=== PATIENT | female | born 1990 | race Caucasian/White ===

== ENCOUNTER 2017-01-03 13:47 | Emergency (ER) | payer BC ==
--- NOTE | 2017-01-03 14:17 | EDM.PDOC ---
ED HPI GENERAL MEDICAL PROBLEM - General Chief Complaint: Flank Pain Stated Complaint: ABD PAIN Time Seen by Provider: 01/03/17 14:15 Source of Information: Reports: Patient History Limitations: Reports: No Limitations - History of Present Illness INITIAL COMMENTS - FREE TEXT/NARRATIVE: HISTORY AND PHYSICAL: []26-year-old female presents with right-sided flank pain History of Present Illness: []This patient had pain starting this morning about 5:00 to his 14 hours ago. Pain comes in waves. Patient states she is 17 weeks 4 days . Review of Systems: As per history of present illness and below otherwise all systems reviewed and negative. Past medical history: As per history of present illness and as reviewed below otherwise noncontributory. Surgical history: As per history of present illness and as reviewed below otherwise noncontributory. Social history: No reported history of drug or alcohol abuse. Family history: As per history of present illness and as reviewed below otherwise noncontributory. Physical exam: Alert and oriented female looking quite uncomfortable. Answers questions in full sentences, without shortness of breath. HEENT: Atraumatic, normocehpalic, pupils reactive, negative for conjunctival pallor or scleral icterus, mucous membranes moist, throat clear, neck supple, nontender, trachea midline. Lungs: Clear to auscultation, breath sounds equal bilaterally, chest non tender. Heart: S1S2, regular, negative for clicks, rubs, or JVD. Abdomen: Soft, nondistended, nontender. Negative for masses or hepatossplenmegaly. Negative for costovertebral tenderness. Pelvis: Stable nontender. Genitourinary: Deferred. Rectal: Deferred Extremities: Atraumatic, negative for cords or calf pain. Neurovascular unremarkable. Neuro: Awake, alert, oriented. Cranial nerves II through XII unremarkable. Cerebellum unremarkable. Motor and sensory unremarkable throughout. Exam nonfocal. Discussed case with Dr. Lowe and with Dr. Abreu. They're in agreement to the pain patient is having have her follow-up with Dr. Will. Diagnostics: [UA] Therapeutics: [lortab] Impression: [flank pain- right hydronephrosis] Plan: []Lortab q 6hours prn pain #12 NR Follow-up with Dr. Will Definitive disposition and diagnosis as appropriate pending reevaluation and review of above. 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 ED EXAM, RENAL/ - Physical Exam Exam: See Below Course - Vital Signs Last Recorded V/S: Last Vital Signs Temp 36.3 C 01/03/17 13:54 Pulse 107 H 01/03/17 13:54 Resp 18 01/03/17 13:54 BP 128/83 01/03/17 13:54 Pulse Ox 99 01/03/17 13:54 - Orders/Labs/Meds Orders: Active Orders 24 hr Category Date Time Status CULTURE URINE [RM] Stat Lab 01/03/17 14:05 Received Labs: Laboratory Tests 01/03/17 Range/Units 14:05 Urine Color YELLOW Urine Appearance CLEAR Urine pH 7.0 (5.0-8.0) Ur Specific [place] 1.010 (1.001-1.035) Urine Protein NEGATIVE (NEGATIVE) mg/dL Urine Glucose (UA) NEGATIVE (NEGATIVE) mg/dL Urine Ketones NEGATIVE (NEGATIVE) mg/dL Urine Occult Blood NEGATIVE (NEGATIVE) Urine Nitrite NEGATIVE (NEGATIVE) Urine Bilirubin NEGATIVE (NEGATIVE) Urine Urobilinogen 0.2 (<2.0) EU/dL Ur Leukocyte Esterase NEGATIVE (NEGATIVE) Urine RBC NONE SEEN (0-2/HPF) Urine WBC 0-2 (0-5/HPF) Ur Epithelial Cells OCCASIONAL (NONE-FEW) Urine Bacteria FEW (NEGATIVE) Urine Mucus LIGHT (NONE-MOD) Departure - Departure Time of Disposition: 16:05 Disposition: Home, Self-Care 01 Condition: Good Clinical Impression: Hydronephrosis of right kidney - Discharge Information Referrals: PCP,None [Primary Care Provider] - Forms: ED Department Discharge Additional Instructions: The following information is given to patients seen in the emergency department who are being discharged to home. This information is to outline your options for follow-up care. We provide all patients seen in our emergency department with a follow-up referral. The need for follow-up, as well as the timing and circumstances, are variable depending upon the specifics of your emergency department visit. If you don't have a primary care physician on staff, we will provide you with a referral. We always advise you to contact your personal physician following an emergency department visit to inform them of the circumstance of the visit and for follow-up with them and/or the need for any referrals to a consulting specialist. The emergency department will also refer you to a specialist when appropriate. This referral assures that you have the opportunity for followup care with a specialist. All of these measure are taken in an effort to provide you with optimal care, which includes your followup. Under all circumstances we always encourage you to contact your private physician who remains a resource for coordinating your care. When calling for followup care, please make the office aware that this follow-up is from your recent emergency room visit. If for any reason you are refused follow-up, please contact the [facility] emergency department at and asked to speak to the emergency department charge nurse. All of with your primary care provider Dr. Will Have discussed your case with Dr. Abreu and Dr. Lowe We will treat her pain any worsening of symptoms please return to ER for evaluation - My Orders Last 24 Hours: My Active Orders 01/03/17 14:05 CULTURE URINE [RM] Stat - Assessment/Plan Last 24 Hours: My Active Orders 01/03/17 14:05 CULTURE URINE [RM] Stat
--- NOTE | 2017-01-03 15:22 | US ---
EXAMINATION: Renal ultrasound HISTORY: Right flank pain, 17 weeks COMPARISON: None TECHNIQUE: Grayscale and color Doppler images obtained of the kidneys and bladder. FINDINGS: The right kidney measures 11.2 cm and the left kidney measures 10.2 cm [id number]. There is mild to moderate right pyelocaliectasis. No hydronephrosis noted on the left. Renal cortical echot exture is normal bilaterally. Normal color Doppler flow. No masses or perinephric fluid collections. The urinary bladder is minimally filled. IMPRESSION: 1. Mild to moderate right hydronephrosis.
[2017-01-03] MEDS ORDERED: Acetaminophen/HYDROcodone 325-5 MG Tab PO ONE (16:08)
[2017-01-03 19:14] VITALS: BP 102/75
== END 2017-01-03 16:25 | disposition home or self-care (01) ==
LOC: MW.ED 13:47
DX: O26.832 Pregnancy related renal disease, second trimester (principal); N13.30 Unspecified hydronephrosis; O99.332 Smoking (tobacco) complicating pregnancy, second trimester; F17.210 Nicotine dependence, cigarettes, uncomplicated; Z3A.17 17 weeks gestation of pregnancy
CPT/HCPCS: 76775; 76775-26; 81001; 87086; 99282; 99284-25

== ENCOUNTER 2017-01-04 01:38 | Emergency (ER) | payer BC ==
[2017-01-04] MEDS ORDERED: Ondansetron 4 MG/2 ML SDV IVPUSH ONE ×2 (01:43→03:39)
[2017-01-04] MEDS ORDERED: Sodium Chloride 0.9% 1,000 ML IV ONE (01:43)
--- NOTE | 2017-01-04 01:44 | EDM.PDOC ---
ED HPI GENERAL MEDICAL PROBLEM - General Chief Complaint: Abdominal Pain Stated Complaint: THROWING UP Time Seen by Provider: 01/04/17 01:44 Source of Information: Reports: Patient - History of Present Illness INITIAL COMMENTS - FREE TEXT/NARRATIVE: HISTORY AND PHYSICAL: History of present illness: []26-year-old female 17 weeks with IUP presents with nausea and vomiting after taking pain medication, she is taking pain medicine in the past with similar reaction/intolerance. She was seen earlier in the day with right flank pain and provided [place] 5 per 325 she took a half tab and begin vomiting she has been vomiting since, pain has resolved all fever chills sweats no chest pain shortness breath headache dizziness palpitation no bowel or urine symptoms abdominal pain resolved No low back pain vaginal bleeding spotting discharge or fluid leakage Review of systems: As per history of present illness and below otherwise all systems reviewed and negative. Past medical history: As per history of present illness and as reviewed below otherwise noncontributory. Surgical history: As per history of present illness and as reviewed below otherwise noncontributory. Social history: No reported history of drug or alcohol abuse. Family history: As per history of present illness and as reviewed below otherwise noncontributory. Physical exam: HEENT: Atraumatic, normocephalic, pupils reactive, negative for conjunctival pallor or scleral icterus, mucous membranes moist, throat clear, neck supple, nontender, trachea midline. Lungs: Clear to auscultation, breath sounds equal bilaterally, chest nontender. Heart: S1S2, regular, negative for clicks, rubs, or JVD. Abdomen: Soft, nondistended, nontender. Negative for masses or hepatosplenomegaly. Negative for costovertebral tenderness. Uterus consistent with dates Pelvis: Stable nontender. Genitourinary: Deferred. Rectal: Deferred. Extremities: Atraumatic, negative for cords or calf pain. Neurovascular unremarkable. Neuro: Awake, alert, oriented. Cranial nerves II through XII unremarkable. Cerebellum unremarkable. Motor and sensory unremarkable throughout. Exam nonfocal. Diagnostics: []CBC, CMP, amylase and lipase UA, hCG Therapeutics: []1 L normal saline bolus Zofran 8 mg IV Ultrasound on file within last 24 hours Impression: []Vomiting resolved 17 weeks IUP by ultrasound with Dr. will ABO type B- on file heart tones 150s Definitive disposition and diagnosis as appropriate pending reevaluation and review of above. 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 ED EXAM, GENERAL - Physical Exam Exam: See Below Course - Vital Signs Last Recorded V/S: Last Vital Signs Temp 36.4 C 01/04/17 01:45 Pulse 84 01/04/17 01:45 Resp 18 01/04/17 01:45 BP 121/84 01/04/17 01:45 Pulse Ox 99 01/04/17 01:45 - Orders/Labs/Meds Orders: Active Orders 24 hr Category Date Time Status Heart Tones [RC] ASDIRECTED Care 01/04/17 02:03 Active Labs: Laboratory Tests 01/04/17 01/04/17 Range/Units 01:55 01:55 WBC 12.98 H (4.0-11.0) K/uL RBC 4.18 L (4.30-5.90) M/uL Hgb 13.4 (12.0-16.0) g/dL Hct 37.8 (36.0-46.0) % MCV 90.4 (80.0-98.0) fL MCH 32.1 H (27.0-32.0) pg MCHC 35.4 (31.0-37.0) g/dL RDW Std Deviation 41.4 (28.0-62.0) fl RDW Coeff of Orin 13 (11.0-15.0) % Plt Count 240 (150-400) K/uL MPV 9.60 (7.40-12.00) fL Neut % (Auto) 81.0 H (48.0-80.0) % Lymph % (Auto) 12.2 L (16.0-40.0) % [place] % (Auto) 6.2 (0.0-15.0) % Eos % (Auto) 0.4 (0.0-7.0) % Baso % (Auto) 0.2 (0.0-1.5) % Neut # (Auto) 10.5 H (1.4-5.7) K/uL Lymph # (Auto) 1.6 (0.6-2.4) K/uL [place] # (Auto) 0.8 (0.0-0.8) K/uL Eos # (Auto) 0.1 (0.0-0.7) K/uL Baso # (Auto) 0.0 (0.0-0.1) K/uL Nucleated RBC % 0.0 /100WBC Nucleated RBCs # 0 K/uL Sodium 133 L (136-146) mmol/L Potassium 3.7 (3.5-5.1) mmol/L Chloride 104 (98-110) mmol/L Carbon Dioxide 19 L (21-31) mmol/L BUN 7 (6.0-23.0) mg/dL Creatinine 0.7 (0.6-1.5) mg/dL Est Cr Clr Drug Dosing 105.93 mL/min Estimated GFR (MDRD) > 60.0 ml/min Glucose 94 (60-110) mg/dL Calcium 9.6 (8.8-10.8) mg/dL Total Bilirubin 0.6 (0.1-1.5) mg/dL AST 26 (5-40) IU/L ALT 31 (8-54) IU/L Alkaline Phosphatase 48 (40-150) Total Protein 7.4 (6.0-8.0) g/dL Albumin 4.0 (3.5-5.0) g/dL Globulin 3.4 (2.0-3.5) g/dL Albumin/Globulin Ratio 1.2 L (1.3-2.8) Amylase 46 (10-90) U/L Lipase 19 (7-80) U/L Meds: Medications Discontinued Medications Generic Name Dose Route Start Last Admin Trade Name Leonardo PRN Reason Stop Dose Admin Sodium Chloride 1,000 mls @ 999 mls/hr 01/04/17 01:43 01/04/17 01:57 Normal Saline IV 01/04/17 02:43 999 mls/hr STAT ONE Administration Ondansetron HCl 8 mg 01/04/17 01:43 01/04/17 01:59 Zofran IVPUSH 01/04/17 01:44 8 mg ONETIME ONE Administration Departure - Departure Time of Disposition: 02:51 Disposition: Home, Self-Care 01 Condition: Good Clinical Impression: Vomiting - Discharge Information Referrals: Anastasiya Will MD [Primary Care Provider] - Forms: ED Department Discharge Additional Instructions: Medication as prescribed Return if symptoms persist or worsen Follow-up with OB as scheduled The following information is given to patients seen in the emergency department who are being discharged to home. This information is to outline your options for follow-up care. We provide all patients seen in our emergency department with a follow-up referral. The need for follow-up, as well as the timing and circumstances, are variable depending upon the specifics of your emergency department visit. If you don't have a primary care physician on staff, we will provide you with a referral. We always advise you to contact your personal physician following an emergency department visit to inform them of the circumstance of the visit and for follow-up with them and/or the need for any referrals to a consulting specialist. The emergency department will also refer you to a specialist when appropriate. This referral assures that you have the opportunity for follow-up care with a specialist. All of these measure are taken in an effort to provide you with optimal care, which includes your follow-up. Under all circumstances we always encourage you to contact your private physician who remains a resource for coordinating your care. When calling for follow-up care, please make the office aware that this follow-up is from your recent emergency room visit. If for any reason you are refused follow-up, please contact the [facility] emergency department at and asked to speak to the emergency department charge nurse. - My Orders Last 24 Hours: My Active Orders 01/04/17 02:03 Heart Tones [RC] ASDIRECTED - Assessment/Plan Last 24 Hours: My Active Orders 01/04/17 02:03 Heart Tones [RC] ASDIRECTED
[2017-01-04 02:31] LABS: CHLORIDE,CL 104 mmol/L (98-110); SODIUM,NA 133 mmol/L (136-146)
[2017-01-04] MEDS ORDERED: LORazepam 2 MG/ML MDV IVPUSH ONE (02:56)
[2017-01-04 04:06] VITALS: BP 91/57
== END 2017-01-04 04:09 | disposition home or self-care (01) ==
LOC: MW.ED 01:38
DX: O21.9 Vomiting of pregnancy, unspecified (principal); O99.332 Smoking (tobacco) complicating pregnancy, second trimester; F17.210 Nicotine dependence, cigarettes, uncomplicated; Z3A.17 17 weeks gestation of pregnancy
CPT/HCPCS: 80053; 82150; 83690; 85025; 96361; 96374; 96375; 96376; 99284; J2060; J2405; J7040; 99283

== ENCOUNTER 2017-01-04 16:50 | Observation (INO) | payer BC ==
[2017-01-04] MEDS ORDERED: Lactated Ringers 1,000 ML IV ONE (17:42)
[2017-01-04] MEDS: Dextrose 5%-0.45% NaCl 1,000 ML IV SCH (18:58)
[2017-01-04] MEDS: Ondansetron 4 MG/2 ML SDV IVPUSH PRN (19:03)
[2017-01-04] MEDS: Acetaminophen/oxyCODONE 325-5 MG Tab PO PRN (19:04)
[2017-01-05] MEDS: Ondansetron 4 MG/2 ML SDV IVPUSH PRN ×3 (00:40→11:27)
[2017-01-05] MEDS: Acetaminophen/oxyCODONE 325-5 MG Tab PO PRN ×2 (00:40→07:02)
[2017-01-05] MEDS: Dextrose 5%-0.45% NaCl 1,000 ML IV SCH ×2 (03:02→11:21)
[2017-01-05] MEDS ORDERED: HYDROmorphone 2 MG/ML Syringe IVPUSH ONE ×2 (08:08→14:04)
--- NOTE | 2017-01-05 08:10 | PCM.PN ---
- General Info Date of Service: 01/05/17 Subjective Update: 17.5 weeks gestation admitted overnight for observation, pain control due to right flank pain, history suggestive of a renal stone. Patient still in pain- percocet dulls the pain (she a dose last night and this morning), movement makes it worst. Pain locate right flank radiating to groin. Straining urine- nichelle debris in urine but no definitive stone passed yet. Has nausea but no vomiting. Tolerated some amount of toast this am. Denies fever or chills. Feels flutters. Denies uterine cramps and no vaginal bleeding Functional Status: Reports: Urinating, Other - Review of Systems General: Denies: Fever, Chills HEENT: Denies: Headaches Pulmonary: Denies: Shortness of Breath, Pleuritic Chest Pain Cardiovascular: Denies: Chest Pain, Palpitations Gastrointestinal: Denies: Abdominal Pain Genitourinary: Reports: Flank Pain. Denies: Dysuria, Frequency, Burning, Urgency, Hematuria Neurological: Denies: Headache - Patient Data Weight - Most Recent: 143 lb I&O - Last 24 Hours: Intake & Output 01/04/17 01/05/17 01/05/17 22:59 06:59 14:59 Intake Total 1000 Output Total 575 Balance -575 1000 Lab Results Last 24 Hours: Laboratory Results - last 24 hr 01/05/17 Range/Units 04:56 WBC 8.48 (4.0-11.0) K/uL RBC 3.53 L (4.30-5.90) M/uL Hgb 10.8 L (12.0-16.0) g/dL Hct 32.3 L (36.0-46.0) % MCV 91.5 (80.0-98.0) fL MCH 30.6 (27.0-32.0) pg MCHC 33.4 (31.0-37.0) g/dL RDW Std Deviation 42.5 (28.0-62.0) fl RDW Coeff of Orin 13 (11.0-15.0) % Plt Count 204 (150-400) K/uL MPV 9.60 (7.40-12.00) fL Neut % (Auto) 66.4 (48.0-80.0) % Lymph % (Auto) 22.5 (16.0-40.0) % [place] % (Auto) 10.1 (0.0-15.0) % Eos % (Auto) 0.9 (0.0-7.0) % Baso % (Auto) 0.1 (0.0-1.5) % Neut # (Auto) 5.6 (1.4-5.7) K/uL Lymph # (Auto) 1.9 (0.6-2.4) K/uL [place] # (Auto) 0.9 H (0.0-0.8) K/uL Eos # (Auto) 0.1 (0.0-0.7) K/uL Baso # (Auto) 0.0 (0.0-0.1) K/uL Nucleated RBC % 0.0 /100WBC Nucleated RBCs # 0 K/uL Med Orders - Current: Current Medications Dextrose/Sodium Chloride (Dextrose 5%-1/2 Ns) 1,000 mls @ 125 mls/hr IV ASDIRECTED WANDA Last Admin: 01/05/17 03:02 Dose: 125 mls/hr Ondansetron HCl (Zofran) 4 mg IVPUSH Q4H PRN PRN Reason: Nausea Last Admin: 01/05/17 07:00 Dose: 4 mg Oxycodone/Acetaminophen (Percocet 325-5 Mg) 1 tab PO Q4H PRN PRN Reason: Pain Last Admin: 01/05/17 07:02 Dose: 1 tab Discontinued Medications Lactated Ringer's (Ringers, Lactated) 1,000 mls @ 999 mls/hr IV .BOLUS ONE Stop: 01/04/17 18:42 Last Admin: 01/04/17 17:58 Dose: 999 mls/hr Comments:: Patient lying on her left side. Looks visibly in pain - Exam General: Alert, Oriented Lungs: Clear to Auscultation, Normal Respiratory Effort Cardiovascular: Regular Rate, Regular Rhythm GI/Abdominal Exam: Soft, Non-Tender Back Exam: CVA Tenderness (R) Extremities: No Pedal Edema Psy/Mental Status: Alert, Normal Affect, Normal Mood - Problem List & Annotations (1) Right flank pain SNOMED Code(s): 518519755 Code(s): R10.9 - UNSPECIFIED ABDOMINAL PAIN Status: Acute Current Visit: Yes (2) Hydronephrosis of right kidney SNOMED Code(s): 95748200 Code(s): N13.30 - UNSPECIFIED HYDRONEPHROSIS Status: Acute Current Visit : No - Problem List Review Problem List Initiated/Reviewed/Updated: Yes - Assessment Assessment:: Primp 17.5 weeks with right flank pain- symptoms and signs consistent with renal stone. Nichelle debris in urine, no definitive stone seen. Afebrile Nausea with minimal vomiting this am WBC: Normal FHR: 145 - Plan Plan:: Continue to strain urine Continue IV fluids, encourage to initiate small amount of bland food- crackers. May try broths too as tolerated Will start daily Flomax 0.4mg Continue to observe- if no improvement in symptoms will call for urology consult
[2017-01-05] MEDS: Tamsulosin 0.4 MG Cap.ER PO SCH (08:28)
[2017-01-05] MEDS ORDERED: Promethazine 25 MG/ML SDV IM PRN (14:19)
[2017-01-05] MEDS ORDERED: Lactated Ringers 1,000 ML IV SCH (20:10)
[2017-01-06] MEDS ORDERED: Dextrose 5%-0.45% NaCl 1,000 ML IV SCH (04:00)
[2017-01-06] MEDS: Tamsulosin 0.4 MG Cap.ER PO SCH (08:59)
--- NOTE | 2017-01-06 11:50 | PCM.PN ---
- General Info Date of Service: 01/06/17 Subjective Update: 17.5 weeks gestation, 2nd day hospital stay for right flank pain associated with nausea and vomiting. Patient is feeling much better today. Her pain has reduced considerably, she hasn't required any pain meds or antiemetics over night. She tolerated a BF of pancakes. Denies fever/chills. Reports positive movements Functional Status: Reports: Pain Controlled, Tolerating Diet, Ambulating, Urinating - Review of Systems General: Denies: Fever, Fatigue, Malaise, Chills Pulmonary: Denies: Shortness of Breath, Pleuritic Chest Pain Cardiovascular: Denies: Chest Pain, Palpitations, Dyspnea on Exertion Gastrointestinal: Reports: Abdominal Pain (Mild groin pain) Genitourinary: Reports: Dysuria, Incontinence. Denies: Flank Pain Psychiatric: Denies: Mood Lability, Anxiety - Patient Data Vitals - Most Recent: Last Vital Signs Temp 36.9 C 01/06/17 04:20 Pulse 74 01/06/17 04:20 Resp 18 01/06/17 04:20 BP 109/63 01/06/17 04:20 Pulse Ox 97 01/06/17 04:20 Weight - Most Recent: 143 lb Med Orders - Current: Current Medications Lactated Ringer's (Ringers, Lactated) 1,000 mls @ 125 mls/hr IV ASDIRECTED [facility] Last Admin: 01/05/17 20:10 Dose: 125 mls/hr Dextrose/Sodium Chloride (Dextrose 5%-1/2 Ns) 1,000 mls @ 125 mls/hr IV ASDIRECTED [facility] Last Admin: 01/06/17 04:40 Dose: 125 mls/hr Ondansetron HCl (Zofran) 4 mg IVPUSH Q4H PRN PRN Reason: Nausea Last Admin: 01/05/17 11:27 Dose: 4 mg Oxycodone/Acetaminophen (Percocet 325-5 Mg) 1 tab PO Q4H PRN PRN Reason: Pain Last Admin: 01/05/17 07:02 Dose: 1 tab Promethazine HCl (Phenergan) 12.5 mg IM Q6H PRN PRN Reason: Nausea/Vomiting Last Admin: 01/05/17 14:35 Dose: 12.5 mg Tamsulosin HCl (Flomax) 0.4 mg PO PCBREAKFAST [facility] Last Admin: 01/06/17 08:59 Dose: 0.4 mg Discontinued Medications Hydromorphone HCl (Dilaudid) 0.5 mg IVPUSH ONETIME ONE Stop: 01/05/17 08:09 Last Admin: 01/05/17 08:29 Dose: 0.5 mg Hydromorphone HCl (Dilaudid) 0.5 mg IVPUSH ONETIME ONE Stop: 01/05/17 14:05 Last Admin: 01/05/17 14:13 Dose: 0.5 mg Dextrose/Sodium Chloride (Dextrose 5%-1/2 Ns) 1,000 mls @ 125 mls/hr IV ASDIRECTED [facility] Last Admin: 01/05/17 11:21 Dose: 125 mls/hr Lactated Ringer's (Ringers, Lactated) 1,000 mls @ 999 mls/hr IV .BOLUS ONE Stop: 01/04/17 18:42 Last Admin: 01/04/17 17:58 Dose: 999 mls/hr - Exam General: Alert, Oriented HEENT: Pupils Equal Lungs: Clear to Auscultation, Normal Respiratory Effort Cardiovascular: Regular Rate, Regular Rhythm GI/Abdominal Exam: Normal Bowel Sounds, Soft, Tender (mild right RLQ-). No: Guarding, Rigid, Rebound (Female) Exam: Deferred Back Exam: Normal Inspection. No: CVA Tenderness (R) Extremities: Normal Inspection, No Pedal Edema Psy/Mental Status: Alert, Normal Affect, Normal Mood - Problem List & Annotations (1) Right flank pain SNOMED Code(s): 413251121 Code(s): R10.9 - UNSPECIFIED ABDOMINAL PAIN Status: Acute Current Visit: Yes (2) Hydronephrosis of right kidney SNOMED Code(s): 26666625 Code(s): N13.30 - UNSPECIFIED HYDRONEPHROSIS Status: Acute Current Visit : No - Problem List Review Problem List Initiated/Reviewed/Updated: Yes - My Orders Last 24 Hours: My Active Orders 01/05/17 14:19 Promethazine [Phenergan] 12.5 mg IM Q6H PRN 01/05/17 20:10 Lactated Ringers [Ringers, Lactated] 1,000 ml IV ASDIRECTED 01/06/17 04:00 Dextrose 5%-0.45% NaCl [Dextrose 5%-1/2 NS] 1,000 ml IV ASDIRECTED - Assessment Assessment:: Hospital stay day #2: Primp 17.6 weeks with right flank pain- symptoms and signs consistent with renal stone. Pain has improved- very mild, requiring no pain meds. Afebrile No N/V since yesterday afternoon- tolerating diet and oral fluids FHR: 145 - Plan Plan:: Stop IVF If patient tolerates afternoon meal- may be discharged home Discharge instructions reviewed: Continue to strain urine at home [place] diet for now and then change diet as tolerated. Keep hydrated Continue daily Flomax 0.4mg for another 10days. Phenergen supp PRN for N/V May use OTC tylenol for pain PRN Notify me if any concerns. Will call to check on her on Saturday and she should keep her appointment on Saturday in the clinic
[2017-01-06 13:12] VITALS: BP 105/56
== END 2017-01-06 14:23 | disposition home or self-care (01) ==
LOC: MW.OB 16:50
PROVIDERS: ADMIT Obstetrics & Gynecology; ATTEND Obstetrics & Gynecology
DX: O99.89 Other specified diseases and conditions complicating pregnancy, childbirth and the puerperium (principal); R10.9 Unspecified abdominal pain; R11.2 Nausea with vomiting, unspecified; O26.832 Pregnancy related renal disease, second trimester; N13.30 Unspecified hydronephrosis; Z3A.17 17 weeks gestation of pregnancy
CPT/HCPCS: 36415; 85025; A9270; J1170; J2405; J2550; J7042; J7120; 88300; 96361; 96372; 96374; 96375; 96376; G0378

== ENCOUNTER 2017-06-16 16:21 | Inpatient (IN) | payer BC ==
[2017-06-16] MEDS ORDERED: Sodium Chloride 0.9% 2.5 ML Syringe FLUSH PRN (17:12)
[2017-06-16] MEDS ORDERED: Sodium Chloride 0.9% 10 ML Syringe FLUSH PRN (17:12)
[2017-06-16] MEDS ORDERED: Nalbuphine 10 MG/1 ML Vial IVPUSH PRN (17:12)
[2017-06-16] MEDS ORDERED: Butorphanol 1 MG/ML SDV IVPUSH PRN (17:12)
[2017-06-16] MEDS ORDERED: Misoprostol 200 MCG Tab PO PRN (17:12)
[2017-06-16] MEDS ORDERED: Lidocaine 1% 50 ML MDV INJECT PRN (17:12)
[2017-06-16] MEDS ORDERED: Water For Irrigation,Sterile 1,000 ML Container IRR PRN (17:12)
[2017-06-16] MEDS ORDERED: Carboprost Tromethamine 250 MCG/1 ML Amp IM PRN (17:12)
[2017-06-16] MEDS ORDERED: Methylergonovine 0.2 MG/1 ML Amp IM PRN (17:12)
[2017-06-16] MEDS ORDERED: Oxytocin/0.9 % Sodium Chloride 30 UNIT/500 ML BAG IV SCH ×2 (17:15→19:30)
[2017-06-16] MEDS: Lactated Ringers 1,000 ML IV SCH ×2 (19:47→23:21)
--- NOTE | 2017-06-16 23:38 | PCM.PREANE ---
Preanesthetic Assessment - Anesthesia/Transfusion/Family Hx Anesthesia History: No Prior Anesthesia Family History of Anesthesia Reaction: No Transfusion History: No Prior Transfusion(s) - Review of Systems General: No Symptoms Pulmonary: No Symptoms, Other (Pt states she had strep throat approx 1 1/2 weeks ago and has finished her amoxicillin) Cardiovascular: No Symptoms Gastrointestinal: No Symptoms Neurological: No Symptoms Other: Reports: None - Physical Assessment NPO Status Date: 06/16/17 NPO Status Time: 23:36 (sips/chips) Blood Pressure: 112/69 Height: 5 ft 4 in Weight: 176 lb ASA Class: 2 Mental Status: Alert & Oriented x3 Airway Class: Mallampati = 2 Dentition: Reports: Normal Dentition Thyro-Mental Finger Breadths: 3 Mouth Opening Finger Breadths: 3 - Lab Values: Laboratory Last Values WBC 9.86 K/uL (4.0-11.0) 06/16/17 17:32 RBC 4.19 M/uL (4.30-5.90) L 06/16/17 17:32 Hgb 13.7 g/dL (12.0-16.0) 06/16/17 17:32 Hct 39.5 % (36.0-46.0) 06/16/17 17:32 MCV 94.3 fL (80.0-98.0) 06/16/17 17:32 MCH 32.7 pg (27.0-32.0) H 06/16/17 17:32 MCHC 34.7 g/dL (31.0-37.0) 06/16/17 17:32 RDW Std Deviation 44.7 fl (28.0-62.0) 06/16/17 17:32 RDW Coeff of Orin 13 % (11.0-15.0) 06/16/17 17:32 Plt Count 197 K/uL (150-400) 06/16/17 17:32 MPV 10.00 fL (7.40-12.00) 06/16/17 17:32 Nucleated RBC % 0.0 /100WBC 06/16/17 17:32 Nucleated RBCs # 0 K/uL 06/16/17 17:32 Blood Type B NEGATIVE 06/16/17 17:32 Antibody Screen NEGATIVE 06/16/17 17:32 - Allergies Allergies/Adverse Reactions: Allergies Allergy/AdvReac Type Severity Reaction Status Date / Time No Known Allergies Allergy Verified 01/04/17 01:44 - Blood Blood Available: No Product(s) Available: None - Anesthesia Plan Free Text/Narrative:: Labor Epidural Pre-Op Medication Ordered: None - Acknowledgements Anesthesia Type Planned: Epidural Pt an Appropriate Candidate for the Planned Anesthesia: Yes Alternatives and Risks of Anesthesia Discussed w Pt/Guardian: Yes Pt/Guardian Understands and Agrees with Anesthesia Plan: Yes PreAnesthesia Questionnaire - Past Health History Medical/Surgical History: Denies Medical/Surgical History HEENT History: Reports: None Cardiovascular History: Reports: Heart Murmur Respiratory History: Reports: Asthma Gastrointestinal History: Reports: None Genitourinary History: Reports: Hydronephrosis 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 OB/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 History: LMP 09/03/16 Musculoskeletal History: Reports: None Neurological History: Reports: None Psychiatric History: Reports: Anxiety, Depression, Eating Disorders, Other (See Below) Other Psychiatric History: Anorexia Endocrine/Metabolic History: Reports: None Hematologic History: Reports: None Immunologic History: Reports: None Oncologic (Cancer) History: Reports: None Dermatologic History: Reports: None - Infectious Disease History Infectious Disease History: Reports: Chicken Pox, Human Papilloma Virus (HPV) - Past Surgical History Head Surgeries/Procedures: Reports: None Oncologic Surgical History: Reports: None - SUBSTANCE USE Smoking Status *Q: Former Smoker Tobacco Use Within Last Twelve Months: Cigarettes Second Hand Smoke Exposure: Yes Recreational Drug Use History: No - HOME MEDS Home Medications: Home Meds PNV95/Ferrous Fumarate/FA [ Tablet] 1 tab PO DAILY 01/03/17 [History] Promethazine HCl [Phenergan] 12.5 mg RC Q6HR PRN #20 supp.rect 01/06/17 [Rx] Tamsulosin [Flomax] 0.4 mg PO PCBREAKFAST #10 cap.er 01/06/17 [Rx] - CURRENT (IN HOUSE) MEDS Current Meds: Current Medications Butorphanol Tartrate (Stadol) 1 mg IVPUSH Q1H PRN PRN Reason: Pain Carboprost Tromethamine (Hemabate Ds) 250 mcg IM ASDIRECTED PRN PRN Reason: Post Hemorrhage Lactated Ringer's (Ringers, Lactated) 1,000 mls @ 150 mls/hr IV ASDIRECTED WANDA Last Admin: 06/16/17 23:21 Dose: 150 mls/hr Oxytocin/Sodium Chloride (Oxytocin 30 Unit/500 Ml-Ns) 30 unit in 500 mls @ 250 mls/hr IV TITRATE WANDA Oxytocin/Sodium Chloride (Oxytocin 30 Unit/500 Ml-Ns) 30 unit in 500 mls @ 2 mls/hr IV TITRATE WANDA; 2 MUNITS/MIN PRN Reason: Protocol Last Infusion: 06/16/17 22:19 Dose: 10 munits/min, 10 mls/hr Lidocaine HCl (Xylocaine 1%) 50 ml INJECT .ONCE PRN PRN Reason: Laceration repair Methylergonovine Maleate (Methergine) 0.2 mg IM ASDIRECTED PRN PRN Reason: Post Hemorrhage Misoprostol (Cytotec) 200 mcg PO .ONCE PRN PRN Reason: Post Hemorrhage Nalbuphine HCl (Nubain) 10 mg IVPUSH Q1H PRN PRN Reason: Pain (severe 7-10) Last Admin: 06/16/17 21:11 Dose: 10 mg Sodium Chloride (Saline Flush) 10 ml FLUSH ASDIRECTED PRN PRN Reason: Keep Vein Open Sodium Chloride (Saline Flush) 2.5 ml FLUSH ASDIRECTED PRN PRN Reason: Keep Vein Open Sterile Water (Sterile Water For Irrigation) 1,000 ml IRR ASDIRECTED PRN PRN Reason: delivery
[2017-06-17] MEDS ORDERED: Metoclopramide 10 MG/2 ML SDV IM ONE (02:32)
[2017-06-17] MEDS ORDERED: Metoclopramide 10 MG/2 ML SDV IVPUSH ONE (02:48)
[2017-06-17] MEDS ORDERED: Docusate Sodium 100 MG Cap PO PRN (09:04)
[2017-06-17] MEDS ORDERED: Ibuprofen 400 MG Tab PO PRN (09:04)
[2017-06-17] MEDS ORDERED: Acetaminophen 500 MG Tab PO PRN ×2 (09:04)
[2017-06-17] MEDS ORDERED: Bisacodyl 10 MG Supp RECTAL PRN (09:04)
[2017-06-17] MEDS ORDERED: Lanolin 100% Cream 7 GM Tube TOP PRN (09:04)
[2017-06-17] MEDS ORDERED: oxyCODONE 5 MG Tab PO PRN (09:04)
[2017-06-17] MEDS ORDERED: Benzocaine/Menthol 20%-0.5% Spray 78 GM Cannister TOP PRN (09:04)
[2017-06-17] MEDS: Witch Hazel Medicated Pads 40/Jar TOP PRN (09:37)
[2017-06-17] MEDS: Ibuprofen 800 MG Tab PO PRN ×2 (09:38→19:20)
--- NOTE | 2017-06-17 14:13 | OR ---
SURGEON: CHAVEZ MARTINEZ DATE OF PROCEDURE: 06/17/2017 PREOPERATIVE DIAGNOSES: 1. Prelabor rupture of membrane. 2. Rh negative. 3. GBS negative. POSTOPERATIVE DIAGNOSES: 1. Vacuum-assisted vaginal delivery. 2. First-degree perineal laceration repair. PROCEDURE: Vacuum-assisted vaginal delivery. ESTIMATED BLOOD LOSS: 300. ANESTHESIA: Epidural. FINDINGS: Live female delivered at 8:01 p.m. scores was 6 and 9. Weight was 3300 g. There was first-degree laceration. Vacuum-assisted vaginal delivery. Normal rectal tone and no rectal tear BRIEF HISTORY: She is a 27-year-old G1, P0, who presented at 40 weeks 6 days with complaint of greenish leakage of fluid. She was admitted for augmentation of labor. On admission, she was 1, 70, -3. Thin meconium was noted. Augmentation of labor was started with Pitocin. She followed a normal labor course and made change to full dilatation.. PROCEDURE However, when she was fully dilated, she was examined and position was found to the ROP. The patient pushed for about 3 hours. At this point, patient was exhausted and said she wanted a vacuum. She was explained the risks, benefits, alternative and noted to go ahead with the vacuum. The vacuum was applied at the flexion point and with maternal pushing effort , the head was delivered and followed by the anterior and posterior shoulder, there was cord noted around the neck which was reduced subsequently, the body was delivered . The was placed over the maternal abdomen. Thick meconium was noted during delivery. The cord was clamped and cut. The patient was handed over to the 3d designer and the nursery nurse. The placenta was delivered via controlled cord traction. Inspection of the perineum showed a 1st degree laceration. Local anaesthesia was injected at the edge of the laceration and it was repaired with 2.0 monocryl . The uterus was found to be firm. The laceration was repaired and hemostasis was noted. Normal rectal examination was noted., The patient was left in the delivery room in stable condition, and all instrument and pad counts were correct x2. HANG SHAH /[id number] CHRISTNI
[2017-06-18] MEDS: Ibuprofen 800 MG Tab PO PRN (03:16)
[2017-06-18] MEDS: Witch Hazel Medicated Pads 40/Jar TOP PRN (03:20)
--- NOTE | 2017-06-18 08:07 | PCM.PNPP ---
- General Info Date of Service: 06/18/17 Functional Status: Reports: Pain Controlled, Tolerating Diet, Ambulating, Urinating - Review of Systems General: Denies: Fever, Weakness, Fatigue Pulmonary: Denies: Shortness of Breath, Pleuritic Chest Pain, Cough Cardiovascular: Denies: Chest Pain, Palpitations, Dyspnea on Exertion Gastrointestinal: Denies: Abdominal Pain Genitourinary: Denies: Dysuria - General Info Date of Service: 06/18/17 - Patient Data Vital Signs - Most Recent: Last Vital Signs Temp 36.7 C 06/18/17 03:21 Pulse 90 06/18/17 03:21 Resp 16 06/18/17 03:21 BP 109/71 06/18/17 03:21 Pulse Ox 95 06/18/17 03:21 Weight - Most Recent: 79.832 kg Lab Results - Last 24 Hours: Laboratory Results - last 24 hr 06/17/17 06/17/17 06/17/17 Range/Units 08:01 08:01 09:45 Hgb (12.0-16.0) g/dL Hct (36.0-46.0) % Cord ABG pH 7.210 (7.18-7.38) Cord ABG Base Excess -8 (-10--2) Cord VBG pH 7.311 (7.25-7.45) Cord VBG Base Excess -9 (-10--2) Screen NEGATIVE (NEGATIVE) RhIG Candidate? YES Rhogam Indicated YES, BABY RH POS H 06/18/17 Range/Units 05:15 Hgb 10.8 L (12.0-16.0) g/dL Hct 31.6 L (36.0-46.0) % Cord ABG pH (7.18-7.38) Cord ABG Base Excess (-10--2) Cord VBG pH (7.25-7.45) Cord VBG Base Excess (-10--2) Screen (NEGATIVE) RhIG Candidate? Rhogam Indicated Med Orders - Current: Current Medications Acetaminophen (Tylenol Extra Strength) 500 mg PO Q4H PRN PRN Reason: Pain Last Admin: 06/18/17 07:32 Dose: 500 mg Acetaminophen (Tylenol Extra Strength) 1,000 mg PO Q4H PRN PRN Reason: Pain Benzocaine/Menthol (Dermoplast Pain Relief 20%-0.5% [place]) 78 gm TOP ASDIRECTED PRN PRN Reason: Perineal Comfort Measure Last Admin: 06/17/17 09:40 Dose: 1 canister Bisacodyl (Dulcolax) 10 mg RECTAL .ONCE PRN PRN Reason: Constipation Carboprost Tromethamine (Hemabate Ds) 250 mcg IM ASDIRECTED PRN PRN Reason: Post Hemorrhage Docusate Sodium (Colace) 100 mg PO BID PRN PRN Reason: Constipation Emollient Ointment (Lansinoh Hpa) 0 gm TOP ASDIRECTED PRN PRN Reason: Sore Nipples Lactated Ringer's (Ringers, Lactated) 1,000 mls @ 150 mls/hr IV ASDIRECTED WANDA Last Admin: 06/16/17 23:21 Dose: 150 mls/hr Oxytocin/Sodium Chloride (Oxytocin 30 Unit/500 Ml-Ns) 30 unit in 500 mls @ 250 mls/hr IV TITRATE WANDA Oxytocin/Sodium Chloride (Oxytocin 30 Unit/500 Ml-Ns) 30 unit in 500 mls @ 2 mls/hr IV TITRATE WANDA; 2 MUNITS/MIN PRN Reason: Protocol Last Infusion: 06/16/17 23:59 Dose: 12 munits/min, 12 mls/hr Ibuprofen (Motrin) 400 mg PO Q4H PRN PRN Reason: Pain Ibuprofen (Motrin) 800 mg PO Q6H PRN PRN Reason: Pain Last Admin: 06/18/17 03:16 Dose: 800 mg Methylergonovine Maleate (Methergine) 0.2 mg IM ASDIRECTED PRN PRN Reason: Post Hemorrhage Misoprostol (Cytotec) 200 mcg PO .ONCE PRN PRN Reason: Post Hemorrhage Nalbuphine HCl (Nubain) 10 mg IVPUSH Q1H PRN PRN Reason: Pain (severe 7-10) Last Admin: 06/16/17 21:11 Dose: 10 mg Oxycodone HCl (Oxycodone) 5 mg PO Q2H PRN PRN Reason: Pain Sodium Chloride (Saline Flush) 10 ml FLUSH ASDIRECTED PRN PRN Reason: Keep Vein Open Sodium Chloride (Saline Flush) 2.5 ml FLUSH ASDIRECTED PRN PRN Reason: Keep Vein Open Witch Ankita (Tucks) 1 pad TOP ASDIRECTED PRN PRN Reason: comfort care Last Admin: 06/18/17 03:20 Dose: 1 tub Discontinued Medications Butorphanol Tartrate (Stadol) 1 mg IVPUSH Q1H PRN PRN Reason: Pain Lidocaine HCl (Xylocaine 1%) 50 ml INJECT .ONCE PRN PRN Reason: Laceration repair Last Admin: 06/17/17 08:05 Dose: 50 ml Metoclopramide HCl (Reglan) 10 mg IVPUSH ONETIME ONE Stop: 06/17/17 02:49 Last Admin: 06/17/17 19:52 Dose: Not Given Sterile Water (Sterile Water For Irrigation) 1,000 ml IRR ASDIRECTED PRN PRN Reason: delivery Last Admin: 06/17/17 08:00 Dose: 1,000 ml - Infant Interaction Infant Disposition, : [place] in Room with Family Feeding: Attempted ; Nursed Fair/Poor Support Person: - Recovery Exam Fundal Tone: Firm Fundal Level: 2 Fingerbreadths Below Umbilicus Fundal Placement: Midline Lochia Amount: Scant Lochia Color: Rubra/Red Perineum Description: Intact, Minimal Bruising/Swelling Bladder Status: Voiding - Exam General: Alert, Oriented Neck: Supple Lungs: Clear to Auscultation, Normal Respiratory Effort Cardiovascular: Regular Rate, Regular Rhythm GI/Abdominal Exam: Normal Bowel Sounds, No Distention Extremities: Pedal Edema (trace) Skin: Warm, Dry, Intact - Problem List & Annotations (1) Vacuum extractor delivery, delivered SNOMED Code(s): 025778217 Code(s): O66.5 - ATTEMPTED APPLICATION OF VACUUM EXTRACTOR AND FORCEPS Status: Acute Current Visit: Yes - Problem List Review Problem List Initiated/Reviewed/Updated: Yes - Assessment Assessment:: PPD #1 s/p vacuum-assisted vaginal delivery. Minimal pain and lochia. breast feeding well. RX sent for Wellbutrin and breast pump. Discharge home today. - Plan Plan:: Discharge instructions reviewed. Nothing in the vagina for 6 weeks. Continue PNV while breast feeding. Can use OTC ibuprofen/tylenol as needed for pain. Restart Wellbutrin. Rx sent to pharmacy. Instructed patient to call if she develops fever greater than 101 or bleeding through a large pad an hour. F/U with [facility] in 6 weeks.
[2017-06-18 16:46] VITALS: BP 115/74
== END 2017-06-18 16:30 | disposition home or self-care (01) | DRG 560 ==
LOC: MW.OBCHECK 16:21 → MW.OB 16:28 → MW.OBCHECK 16:59 → MW.OB 17:00 → OBSVTOIN 06-17 08:01 → MW.OB 06-17 12:35
PROVIDERS: ADMIT Obstetrics & Gynecology; ATTEND Obstetrics & Gynecology
PROC: 10D07Z6 Extraction of Products of Conception, Vacuum, Via Natural or Artificial Opening (ICD-10-PCS; principal; 2017-06-17)
PROC: 3E033VJ Introduction of Other Hormone into Peripheral Vein, Percutaneous Approach (ICD-10-PCS; 2017-06-17)
PROC: 0HQ9XZZ Repair Perineum Skin, External Approach (ICD-10-PCS; 2017-06-17)
DX: O42.02 Full-term premature rupture of membranes, onset of labor within 24 hours of rupture (principal); O70.0 First degree perineal laceration during delivery; O77.0 Labor and delivery complicated by meconium in amniotic fluid; Z3A.40 40 weeks gestation of pregnancy; Z37.0 Single live birth
CPT/HCPCS: 01967; 36415; 51702; 59025; 59409; 82803; 85014; 85018; 85027; 85460; 86850; 86900; 86901; A9270-GY; J2300; J2590; J2790; J7120

== ENCOUNTER 2021-03-30 01:30 | Emergency (ER) | payer BC ==
--- NOTE | 2021-03-30 01:38 | EDM.PDOC ---
ED HPI GENERAL MEDICAL PROBLEM - General Stated Complaint: CHEST PAINS Time Seen by Provider: 03/30/21 01:31 - History of Present Illness INITIAL COMMENTS - FREE TEXT/NARRATIVE: History of present illness: [] Patient is suffered a "floppy heartbeat" for 2 months off and on but not so much tonight. Tonight she complains of chest pain. She has noted this pain coming on when she is at rest mostly and not worse with exertion. Its associated with some shortness of breath heartburn and pain in the left shoulder. The patient does suffer from some significant anxiety at times. Patient is 23 weeks . She had COVID-19 in December and recovered co mpletely uneventfully. Patient is a Ab0 Review of systems: As per history of present illness and below otherwise all systems reviewed and negative. Past medical history: As per history of present illness and as reviewed below otherwise noncontributory. Surgical history: As per history of present illness and as reviewed below otherwise noncontributory. Social history: No reported history of drug or alcohol abuse. Family history: As per history of present illness and as reviewed below otherwise noncontributory. Physical exam: Constitutional - well developed, well-nourished and in no acute distress HEENT - normocephalic, no evidence of trauma - external nose and mouth normal - no mass in neck and no JVD - mucosae moist EYES - full EOM, PERRL, no icterus - no evidence of inflammation, injection, or drainage Respiratory - no respiratory distress, equal bilateral expansion, lungs clear to auscultation and no abnormal lung sounds Cardiovascular - Regular Rhythm with S1 and S2 appreciated and no murmur, gallop or rub. GI -gravid uterus otherwise abdomen soft without distension or organomegaly - normal bowel sounds - no guard or rebound Musculoskeletal tender left sternal border which reproduces her pain. No pain on palpation or range of motion of the left shoulder. No gross deformity of long bones or joints - no tenderness, swelling or edema Neurologic - Alert and oriented times four - CN II-XII grossly intact - motor sensory and coordination symmetrically normal Psychiatric - appropriate mood and affect with normal thought content Hematologic - No petechiae or purpura - mucosa appropriate color and sclera not pale - normal nail bed color and refill Integument - no rash or evidence of trauma - normal turgor Diagnostics: [] Therapeutics: [] Impression: [] Plan: [] Definitive disposition and diagnosis as appropriate pending reevaluation and review of above. Chest Pain Score (Numeric/FACES): 8 - Related Data Allergies Allergy/AdvReac Type Severity Reaction Status Date / Time No Known Allergies Allergy Verified 03/30/21 01:50 Home Meds: Home Meds . 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 Musculoskeletal History: Reports: None Neurological History: Reports: None Psychiatric History: Reports: Anxiety, Depression, Eating Disorders, Other (See Below) Other Psychiatric History: Anorexia Endocrine/Metabolic History: Reports: None Hematologic History: Reports: None Immunologic History: Reports: None Oncologic (Cancer) History: Reports: None Dermatologic History: Reports: None - Infectious Disease History Infectious Disease History: Reports: Chicken Pox, Human Papilloma Virus (HPV) - Past Surgical History Head Surgeries/Procedures: Reports: None Oncologic Surgical History: Reports: None Social & Family History - Family History Family Medical History: No Pertinent Family History Cardiac: Reports: Hypertension : Reports: Renal Calculus OBGYN: Reports: Musculoskeletal: Reports: RA Neurological: Reports: Alzheimers Disease, CVA Psychiatric: Reports: Anxiety, Depression Immunologic: Reports: Other (See Below) Other Immunologic Family History: Lupus Oncologic: Reports: Breast, Colon - Caffeine Use Caffeine Use: Reports: Coffee Caffeine Use Comment: 1cup/day ED ROS GENERAL - Review of Systems Review Of Systems: Comprehensive ROS is negative, except as noted in HPI. ED EXAM, GENERAL - Physical Exam Exam: See Below Free Text/Narrative:: My physical exam is in the HPI #1 Interpretation EKG Interpretation Comments: EKG performed 03/30/2021 at 1:31 AM shows a sinus rhythm with a heart rate of 70 and a NH interval of 144. The QT duration is 423 and axis is 33. QRS ST and T are normal. No prior for comparison. Impression normal EKG. Course - Vital Signs Last Recorded V/S: Last Vital Signs Temp 36.1 C 03/30/21 01:45 Pulse 78 03/30/21 01:45 Resp 20 03/30/21 01:45 BP 113/77 03/30/21 01:45 Pulse Ox 99 03/30/21 01:45 - Orders/Labs/Meds Orders: Active Orders 24 hr Category Date Time Status Telemetry Monitoring [Cardiac Monitoring] [RC] . Care 03/30/21 01:49 Active DIRECTED Ibuprofen [Motrin] Med 03/30/21 02:48 Once 600 mg PO ONETIME ONE Sodium Chloride 0.9% [Saline Flush] Med 03/30/21 01:46 Active 10 ml FLUSH ASDIRECTED PRN Sodium Chloride 0.9% [Saline Flush] Med 03/30/21 01:46 Active 2.5 ml FLUSH ASDIRECTED PRN Saline Lock Insert [OM.PC] Stat Oth 03/30/21 01:46 Ordered Medication Orders Sodium Chloride (Sodium Chloride 0.9% 10 Ml Syringe) 10 ml FLUSH ASDIRECTED PRN PRN Reason: Keep Vein Open Last Admin: 03/30/21 01:57 Dose: 10 ml Documented by: LEO Sodium Chloride (Sodium Chloride 0.9% 2.5 Ml Syringe) 2.5 ml FLUSH ASDIRECTED PRN PRN Reason: Keep Vein Open Last Admin: 03/30/21 01:57 Dose: 2.5 ml Documented by: LEO Labs: Laboratory Tests 03/30/21 03/30/21 Range/Units 01:40 01:40 WBC 8.09 (4.0-11.0) K/uL RBC 3.72 L (4.30-5.90) M/uL Hgb 12.0 (12.0-16.0) g/dL Hct 35.8 L (36.0-46.0) % MCV 96.2 (80.0-98.0) fL MCH 32.3 H (27.0-32.0) pg MCHC 33.5 (31.0-37.0) g/dL RDW Std Deviation 42.3 (28.0-62.0) fl RDW Coeff of Orin 13 (11.0-15.0) % Plt Count 219 (150-400) K/uL MPV 9.90 (7.40-12.00) fL Neut % (Auto) 69.1 (48.0-80.0) % Lymph % (Auto) 20.0 (16.0-40.0) % Steele % (Auto) 9.6 (0.0-15.0) % Eos % (Auto) 1.1 (0.0-7.0) % Baso % (Auto) 0.2 (0.0-1.5) % Neut # (Auto) 5.6 (1.4-5.7) K/uL Lymph # (Auto) 1.6 (0.6-2.4) K/uL Steele # (Auto) 0.8 (0.0-0.8) K/uL Eos # (Auto) 0.1 (0.0-0.7) K/uL Baso # (Auto) 0.0 (0.0-0.1) K/uL Sodium 139 (136-145) mmol/L Potassium 4.0 (3.5-5.1) mmol/L Chloride 102 (98-107) mmol/L Carbon Dioxide 24.7 (21.0-32.0) mmol/L BUN 10 (7.0-18.0) mg/dL Creatinine 0.6 (0.6-1.0) mg/dL Est Cr Clr Drug Dosing 122.25 mL/min Estimated GFR (MDRD) > 60.0 ml/min Glucose 81 (74-106) mg/dL Calcium 8.9 (8.5-10.1) mg/dL Magnesium 1.7 L (1.8-2.4) mg/dL Total Bilirubin 0.4 (0.2-1.0) mg/dL AST 17 (15-37) IU/L ALT 21 (14-63) IU/L Alkaline Phosphatase 48 (46-116) U/L Troponin I < 0.050 (0.000-0.056) ng/mL Total Protein 6.9 (6.4-8.2) g/dL Albumin 2.8 L (3.4-5.0) g/dL Globulin 4.1 H (2.6-4.0) g/dL Albumin/Globulin Ratio 0.7 L (0.9-1.6) Meds: Medications Generic Name Dose Route Start Last Admin Trade Name Freq PRN Reason Stop Dose Admin Sodium Chloride 10 ml 03/30/21 01:46 03/30/21 01:57 Sodium Chloride 0.9% 10 Ml Syringe FLUSH 10 ml ASDIRECTED PRN Administration Keep Vein Open Sodium Chloride 2.5 ml 03/30/21 01:46 03/30/21 01:57 Sodium Chloride 0.9% 2.5 Ml Syringe FLUSH 2.5 ml ASDIRECTED PRN Administration Keep Vein Open - Re-Assessments/Exams Free Text/Narrative Re-Assessment/Exam: 03/30/21 02:[address] Malone on-call for her [facility] clinic. She said 1 dose of nonsteroidal anti-inflammatory medication is acceptable but she prefers patient use Tylenol and avoid any excess use of NSAIDs. Departure - Departure Time of Disposition: 03:00 Disposition: Home, Self-Care 01 Condition: Good Clinical Impression: Costochondritis - Discharge Information Instructions: Costochondritis, [id number] Referrals: Devon Judge MD [Primary Care Provider] - Additional Instructions: Dr. Malone from [facility] feels like a dose or an occasional dose of anti- inflammatory medicine is not harmful but prefers to use Tylenol rest and heat to the areas much as possible instead. Follow-up with [facility]. [facility] [address] [place] [id number] [facility] [address] [place] [id number] The following information is given to patients seen in the emergency department who are being discharged to home. This information is to outline your options for follow-up care. We provide all patients seen in our emergency department with a follow-up referral. The need for follow-up, as well as the timing and circumstances, are variable depending upon the specifics of your emergency department visit. If you don't have a primary care physician on staff, we will provide you with a referral. We always advise you to contact your personal physician following an emergency department visit to inform them of the circumstance of the visit and for follow-up with them and/or the need for any referrals to a consulting specialist. The emergency department will also refer you to a specialist when appropriate. This referral assures that you have the opportunity for follow-up care with a specialist. All of these measure are taken in an effort to provide you with optimal care, which includes your follow-up. Under all circumstances we always encourage you to contact your private physi moustapha who remains a resource for coordinating your care. When calling for follow- up care, please make the office aware that this follow-up is from your recent emergency room visit. If for any reason you are refused follow-up, please contact the [facility] Emergency Department at and asked to speak to the emergency department charge nurse. Sepsis Event Note (ED) - Focused Exam Vital Signs: Vital Signs Temp Pulse Resp BP Pulse Ox 03/30/21 01:45 36.1 C 78 20 113/77 99 - My Orders Last 24 Hours: My Active Orders 03/30/21 01:46 Sodium Chloride 0.9% [Saline Flush] 10 ml FLUSH ASDIRECTED PRN Sodium Chloride 0.9% [Saline Flush] 2.5 ml FLUSH ASDIRECTED PRN Saline Lock Insert [OM.PC] Stat 03/30/21 01:49 Telemetry Monitoring [Cardiac Monitoring] [RC] . DIRECTED 03/30/21 02:48 Ibuprofen [Motrin] 600 mg PO ONETIME ONE - Assessment/Plan Last 24 Hours: My Active Orders 03/30/21 01:46 Sodium Chloride 0.9% [Saline Flush] 10 ml FLUSH ASDIRECTED PRN Sodium Chloride 0.9% [Saline Flush] 2.5 ml FLUSH ASDIRECTED PRN Saline Lock Insert [OM.PC] Stat 03/30/21 01:49 Telemetry Monitoring [Cardiac Monitoring] [RC] . DIRECTED 03/30/21 02:48 Ibuprofen [Motrin] 600 mg PO ONETIME ONE
[2021-03-30] MEDS ORDERED: Sodium Chloride 0.9% 10 ML Syringe FLUSH PRN (01:46)
[2021-03-30] MEDS ORDERED: Sodium Chloride 0.9% 2.5 ML Syringe FLUSH PRN (01:46)
--- NOTE | 2021-03-30 02:10 | CR ---
INDICATION: Chest pain TECHNIQUE: Chest radiograph 1 view COMPARISON: None FINDINGS: Mediastinum: The mediastinum is normal in appearance. The heart silhouette is normal in size and morphology. Lung: Both lungs are unremarkable in appearance. No sign of pleural effusion seen. No pneumothorax is identified. Bone and Soft tissue: Unremarkable for age. IMPRESSION: 1. No acute cardiopulmonary disease is seen. Dictated by: Kevin Woo MD @ 03/30/2021 02:09:44 (Electronically Signed)
[2021-03-30 02:23] LABS: BLOOD UREA NITROGEN,BUN 10 mg/dL (7.0-18.0); CARBON DIOXIDE,CO2 24.7 mmol/L (21.0-32.0); CHLORIDE,CL 102 mmol/L (98-107); GLUCOSE RANDOM 81 mg/dL (74-106); SODIUM,NA 139 mmol/L (136-145)
[2021-03-30] MEDS ORDERED: Ibuprofen 600 MG Tab PO ONE (02:48)
[2021-03-30 03:00] VITALS: BP 124/78; PULSE 85
== END 2021-03-30 03:00 | disposition home or self-care (01) ==
LOC: MW.ED 01:30
DX: O99.891 Other specified diseases and conditions complicating pregnancy (principal); M94.0 Chondrocostal junction syndrome [Tietze]; Z86.16 Personal history of COVID-19; Z3A.23 23 weeks gestation of pregnancy
CPT/HCPCS: 36415; 71045; 80053; 83735; 84484; 85025; 93005; 99285; A9270

== ENCOUNTER 2021-07-16 19:36 | Inpatient (IN) | payer BC ==
[2021-07-16] MEDS: Lactated Ringers 1,000 ML IV SCH ×2 (19:45→21:39)
[2021-07-16 21:21] LABS: BLOOD UREA NITROGEN,BUN 5 mg/dL (7.0-18.0); CARBON DIOXIDE,CO2 20.7 mmol/L (21.0-32.0); CHLORIDE,CL 101 mmol/L (98-107); ESTIMATED GFR > 60.0 ml/min; GLUCOSE RANDOM 82 mg/dL (74-106); POTASSIUM,K 3.7 mmol/L (3.5-5.1); SODIUM,NA 135 mmol/L (136-145)
[2021-07-16 21:35] LABS: CORONAVIRUS COVID-19 NAA NEGATIVE (NEGATIVE); INFLUENZA A NAA POSITIVE (NEGATIVE); INFLUENZA B NAA NEGATIVE (NEGATIVE)
[2021-07-16] MEDS: Acetaminophen 500 MG Tab PO PRN (21:35)
[2021-07-16] MEDS: Ondansetron 4 MG/2 ML SDV IVPUSH PRN (21:35)
[2021-07-16] MEDS ORDERED: Oseltamivir 75 MG Cap PO ONE (22:24)
[2021-07-16] MEDS ORDERED: Oseltamivir 75 MG Cap ONE (22:40)
[2021-07-16] MEDS: Benzonatate 100 MG Cap PO PRN (22:46)
[2021-07-17] MEDS ORDERED: Misoprostol 200 MCG Tab PO PRN (01:05)
[2021-07-17] MEDS ORDERED: Lidocaine 1% 50 ML MDV INJECT PRN (01:05)
[2021-07-17] MEDS ORDERED: Sodium Chloride 0.9% 20 ML SDV IV PRN (01:05)
[2021-07-17] MEDS ORDERED: Sodium Chloride 0.9% 10 ML Syringe FLUSH PRN (01:05)
[2021-07-17] MEDS ORDERED: Water For Irrigation,Sterile 1,000 ML Container IRR PRN (01:05)
[2021-07-17] MEDS ORDERED: Sodium Chloride 0.9% 2.5 ML Syringe FLUSH PRN (01:05)
[2021-07-17] MEDS ORDERED: Carboprost Tromethamine 250 MCG/1 ML Amp IM PRN (01:05)
[2021-07-17] MEDS ORDERED: Tranexamic Acid 1,000 MG in Sodium Chloride 0.9% 100 ML IV PRN (01:05)
[2021-07-17] MEDS ORDERED: Methylergonovine 0.2 MG/1 ML Amp IM PRN (01:05)
[2021-07-17] MEDS ORDERED: Butorphanol 1 MG/ML SDV IVPUSH PRN (01:05)
[2021-07-17] MEDS ORDERED: Oxytocin/0.9 % Sodium Chloride 30 UNIT/500 ML BAG IV SCH ×2 (01:15→04:45)
[2021-07-17] MEDS ORDERED: Ropivacaine 100 ML ONE (02:31)
[2021-07-17] MEDS ORDERED: ePHEDrine 50 MG/ML SDV IVPUSH PRN ×2 (02:39)
[2021-07-17] MEDS ORDERED: Ropivacaine 200 MG in Premix Bag 1 BAG EPIDUR SCH (02:45)
[2021-07-17] MEDS: Acetaminophen 500 MG Tab PO PRN ×3 (03:39→19:36)
[2021-07-17] MEDS ORDERED: Terbutaline 1 MG/ML SDV SUBCUT PRN (04:37)
[2021-07-17] MEDS ORDERED: Diltiazem 120 MG Cap.CD PO PRN (04:40)
[2021-07-17] MEDS ORDERED: Oseltamivir 75 MG Cap PO SCH (09:00)
[2021-07-17] MEDS ORDERED: fentaNYL 100 MCG/2 ML SDV ONE ×2 (14:32→20:14)
[2021-07-17] MEDS ORDERED: Lidocaine 2% with EPINEPHrine 1:200,000 20 ML SDV ONE (14:32)
[2021-07-17] MEDS: Lactated Ringers 1,000 ML IV SCH (17:24)
[2021-07-17] MEDS: Benzonatate 100 MG Cap PO PRN (19:37)
[2021-07-18] MEDS ORDERED: Citric Acid/Sodium Citrate Solution 30 ML Cup PO ONE (00:08)
[2021-07-18] MEDS ORDERED: ceFAZolin 2 GM in Premix Bag 1 BAG IV ONE (00:08)
[2021-07-18] MEDS ORDERED: Azithromycin 500 MG in Sodium Chloride 0.9% 250 ML IV ONE (00:08)
[2021-07-18] MEDS ORDERED: Oxytocin 10 Units/1 ML SDV ONE ×2 (00:12→01:09)
[2021-07-18] MEDS ORDERED: Phenylephrine 1% 10 MG/ML SDV ONE ×3 (00:12→01:36)
[2021-07-18] MEDS ORDERED: fentaNYL 100 MCG/2 ML SDV ONE (00:12)
[2021-07-18] MEDS ORDERED: ceFAZolin 1 GM Vial ONE (00:12)
[2021-07-18] MEDS ORDERED: Ondansetron 4 MG/2 ML SDV ONE (00:12)
[2021-07-18] MEDS ORDERED: Morphine PF 10 MG/10 ML SDV ONE (00:12)
[2021-07-18] MEDS ORDERED: Oxytocin/0.9 % Sodium Chloride 30 UNIT/500 ML BAG IV SCH (00:15)
[2021-07-18] MEDS ORDERED: Ropivacaine 0.5% 5 MG/ML 30 ML SDV ONE (00:16)
[2021-07-18] MEDS ORDERED: Azithromycin 500 MG Vial ONE (00:18)
[2021-07-18] MEDS ORDERED: Sodium Chloride 0.9% 250 ML ONE (00:19)
[2021-07-18] MEDS ORDERED: Glycopyrrolate 0.2 MG/ML SDV ONE (00:54)
[2021-07-18] MEDS ORDERED: Calcium Chloride 10% 1 GM/10 ML Syringe ONE (01:20)
[2021-07-18] MEDS ORDERED: Lidocaine 2% 5 ML SDV ONE (01:26)
[2021-07-18] MEDS ORDERED: Bisacodyl 10 MG Supp RECTAL PRN (01:56)
[2021-07-18] MEDS ORDERED: Lanolin 100% Cream 7 GM Tube TOP PRN (01:56)
[2021-07-18] MEDS ORDERED: Acetaminophen/oxyCODONE 325-5 MG Tab PO PRN ×3 (01:56→02:12)
[2021-07-18] MEDS ORDERED: Ondansetron 4 MG/2 ML SDV IVPUSH PRN ×3 (01:56→02:12)
[2021-07-18] MEDS ORDERED: ePHEDrine 50 MG/ML SDV ONE (01:56)
[2021-07-18] MEDS ORDERED: diphenhydrAMINE 50 MG/ML SDV IVPUSH PRN ×2 (01:56→02:12)
[2021-07-18] MEDS ORDERED: Lactated Ringers 1,000 ML IV SCH (02:00)
[2021-07-18] MEDS ORDERED: Naloxone 0.4 MG/ML SDV IVPUSH PRN (02:12)
[2021-07-18] MEDS ORDERED: fentaNYL 100 MCG/2 ML SDV IVPUSH PRN ×2 (02:12)
[2021-07-18] MEDS ORDERED: Morphine 4 MG/ML VIAL IVPUSH PRN (02:12)
[2021-07-18] MEDS ORDERED: HYDROmorphone 1 MG/ML Syringe IVPUSH PRN (02:12)
[2021-07-18] MEDS ORDERED: Albuterol 0.083% 2.5 MG/3 ML Neb Soln NEB PRN (02:12)
[2021-07-18] MEDS ORDERED: Metoclopramide 10 MG/2 ML SDV IVPUSH PRN (02:12)
[2021-07-18] MEDS ORDERED: ePHEDrine 50 MG/ML SDV IVPUSH PRN (02:12)
[2021-07-18] MEDS: Ketorolac 30 MG/ML SDV IVPUSH SCH ×4 (03:20→21:28)
[2021-07-18] MEDS: Benzonatate 100 MG Cap PO PRN (03:20)
[2021-07-18] MEDS: Oseltamivir 75 MG Cap PO SCH ×2 (03:20→15:47)
[2021-07-18] MEDS: Lactated Ringers 1,000 ML IV SCH (06:02)
[2021-07-18 07:01] LABS: BLOOD UREA NITROGEN,BUN 8 mg/dL (7.0-18.0); CARBON DIOXIDE,CO2 16.3 mmol/L (21.0-32.0); CHLORIDE,CL 104 mmol/L (98-107); ESTIMATED GFR > 60.0 ml/min; GLUCOSE RANDOM 137 mg/dL (74-106); SODIUM,NA 135 mmol/L (136-145)
[2021-07-18] MEDS: Docusate Sodium 100 MG Cap PO SCH ×2 (09:48→21:28)
[2021-07-18] MEDS: Ondansetron 4 MG/2 ML SDV IVPUSH PRN (13:41)
[2021-07-18 13:52] LABS: BLOOD UREA NITROGEN,BUN 8 mg/dL (7.0-18.0); CHLORIDE,CL 103 mmol/L (98-107); ESTIMATED GFR > 60.0 ml/min; GLUCOSE RANDOM 129 mg/dL (74-106); POTASSIUM,K 4.5 mmol/L (3.5-5.1); SODIUM,NA 133 mmol/L (136-145)
[2021-07-19] MEDS: Ibuprofen 800 MG Tab PO PRN ×3 (07:24→23:38)
[2021-07-19] MEDS: Benzonatate 100 MG Cap PO PRN ×4 (08:08→22:15)
[2021-07-19] MEDS: Docusate Sodium 100 MG Cap PO SCH ×2 (08:08→20:23)
[2021-07-19] MEDS: Ketorolac 30 MG/ML SDV IVPUSH SCH (09:34)
[2021-07-19] MEDS: Iron Sucrose Complex 200 MG in Sodium Chloride 0.9% 100 ML IV SCH (09:48)
[2021-07-19] MEDS: Acetaminophen 500 MG Tab PO PRN ×2 (11:35→20:23)
[2021-07-19] MEDS: Oseltamivir 75 MG Cap PO SCH ×2 (15:46→15:48)
[2021-07-20] MEDS: Oseltamivir 75 MG Cap PO SCH ×2 (03:48→13:15)
[2021-07-20] MEDS: Acetaminophen 500 MG Tab PO PRN (03:48)
[2021-07-20] MEDS: Benzonatate 100 MG Cap PO PRN ×2 (03:48→08:31)
[2021-07-20] MEDS: Docusate Sodium 100 MG Cap PO SCH (08:31)
[2021-07-20] MEDS: Iron Sucrose Complex 200 MG in Sodium Chloride 0.9% 100 ML IV SCH (09:43)
[2021-07-20 10:53] VITALS: BP 109/72; PULSE 96
== END 2021-07-20 13:49 | disposition home or self-care (01) | DRG 540 ==
LOC: MW.OB 19:36 → MW.OBCHECK 19:36 → MW.OB 07-17 01:10 → OBSVTOIN 07-18 01:56 → MW.OB 07-18 02:33
PROVIDERS: ADMIT Obstetrics & Gynecology; ATTEND Obstetrics & Gynecology
PROC: 10D00Z1 Extraction of Products of Conception, Low, Open Approach (ICD-10-PCS; principal; 2021-07-18)
PROC: 10907ZC Drainage of Amniotic Fluid, Therapeutic from Products of Conception, Via Natural or Artificial Opening (ICD-10-PCS; 2021-07-18)
PROC: 3E033VJ Introduction of Other Hormone into Peripheral Vein, Percutaneous Approach (ICD-10-PCS; 2021-07-18)
PROC: 3E0234Z Introduction of Serum, Toxoid and Vaccine into Muscle, Percutaneous Approach (ICD-10-PCS; 2021-07-19)
DX: O76 Abnormality in fetal heart rate and rhythm complicating labor and delivery (principal); J10.1 Influenza due to other identified influenza virus with other respiratory manifestations; O98.82 Other maternal infectious and parasitic diseases complicating childbirth; O33.4XX0 Maternal care for disproportion of mixed maternal and fetal origin, not applicable or unspecified; I48.92 Unspecified atrial flutter; O99.42 Diseases of the circulatory system complicating childbirth; O62.1 Secondary uterine inertia; Z20.822 Contact with and (suspected) exposure to COVID-19; O26.893 Other specified pregnancy related conditions, third trimester; Z37.0 Single live birth; Z3A.39 39 weeks gestation of pregnancy; Z67.21 Type B blood, Rh negative
CPT/HCPCS: 01967; 01968; 0240U; 36415; 51702; 59025; 64488; 80053; 81003; 82803; 85007; 85014; 85018; 85027; 85384; 85460; 85610; 85730; 86592; 86850; 86900; 86901; 86920; A9270-GY; J0456; J0690; J1756; J1790; J1885; J2274; J2370; J2405; J2590; J2790; J2795; J3010; J3490; J7050; J7120

== ENCOUNTER 2021-07-24 15:03 | Emergency (ER) | payer BC ==
[2021-07-24 16:48] LABS: BLOOD UREA NITROGEN,BUN 13 mg/dL (7.0-18.0); CARBON DIOXIDE,CO2 23.9 mmol/L (21.0-32.0); CHLORIDE,CL 105 mmol/L (98-107); GLUCOSE RANDOM 76 mg/dL (74-106); POTASSIUM,K 4.1 mmol/L (3.5-5.1); SODIUM,NA 141 mmol/L (136-145)
[2021-07-24] MEDS ORDERED: Iopamidol 755 MG/ML 500 ML Multipack Bottle IVPUSH STA (17:07)
[2021-07-25 01:26] VITALS: BP 120/78; PULSE 84
== END 2021-07-24 18:27 | disposition home or self-care (01) ==
LOC: MW.ED 15:03
DX: M79.81 Nontraumatic hematoma of soft tissue (principal)
CPT/HCPCS: 36415; 74177; 80053; 85025; 99284; Q9967; 99283

== ENCOUNTER 2021-08-03 06:37 | Day surgery (SDC) | payer BC ==
[~2021-08-03 06:37] MED LIST: Lactated Ringers 1,000 ML IV SCH
[2021-08-03] MEDS ORDERED: Propofol 200 MG/20 ML SDV ONE (07:32)
[2021-08-03] MEDS ORDERED: Chloroprocaine 10 MG/ML 5 ML Amp ONE (07:35)
[2021-08-03] MEDS ORDERED: Lidocaine 1% with EPINEPHrine 1:100,000 10 ML MDV ONE (07:38)
[2021-08-03] MEDS ORDERED: HYDROmorphone 1 MG/ML Syringe IVPUSH PRN (07:42)
[2021-08-03] MEDS ORDERED: Naloxone 0.4 MG/ML SDV IVPUSH PRN (07:42)
[2021-08-03] MEDS ORDERED: Ondansetron 4 MG/2 ML SDV IVPUSH PRN (07:42)
[2021-08-03] MEDS ORDERED: Albuterol 0.083% 2.5 MG/3 ML Neb Soln NEB PRN (07:42)
[2021-08-03] MEDS ORDERED: Metoclopramide 10 MG/2 ML SDV IVPUSH PRN (07:42)
[2021-08-03] MEDS ORDERED: fentaNYL 100 MCG/2 ML SDV IVPUSH PRN (07:42)
[2021-08-03 09:42] VITALS: BP 107/70; PULSE 63
== END 2021-08-03 11:22 | disposition home or self-care (01) ==
LOC: MW.SDS 06:37
PROVIDERS: ATTEND Obstetrics & Gynecology
DX: N75.0 Cyst of Bartholin's gland (principal); N89.8 Other specified noninflammatory disorders of vagina; I48.91 Unspecified atrial fibrillation; J45.909 Unspecified asthma, uncomplicated; F32.A Depression, unspecified; Z79.899 Other long term (current) drug therapy; Z87.891 Personal history of nicotine dependence; Z87.59 Personal history of other complications of pregnancy, childbirth and the puerperium
CPT/HCPCS: 56420; J2400; J7120; 00940; J2704

== ENCOUNTER 2021-10-22 13:26 | Emergency (ER) | payer BC ==
[2021-10-22 14:44] LABS: CARBON DIOXIDE,CO2 27.4 mmol/L (21.0-32.0); POTASSIUM,K 4.6 mmol/L (3.5-5.1)
[2021-10-22 15:14] VITALS: BP 103/73; PULSE 76
== END 2021-10-22 15:03 | disposition home or self-care (01) ==
LOC: MW.ED 13:26
DX: I48.0 Paroxysmal atrial fibrillation (principal)
CPT/HCPCS: 36415; 80053; 83735; 84443; 84484; 84703; 85025; 93005; 93010; 99284; 99285-25

== ENCOUNTER 2022-03-04 17:27 | Emergency (ER) | payer BC ==
[2022-03-04 18:43] LABS: BLOOD UREA NITROGEN,BUN 14 mg/dL (7.0-18.0); CARBON DIOXIDE,CO2 24.1 mmol/L (21.0-32.0); CHLORIDE,CL 104 mmol/L (98-107); GLUCOSE RANDOM 99 mg/dL (74-106); POTASSIUM,K 3.9 mmol/L (3.5-5.1); SODIUM,NA 139 mmol/L (136-145)
[2022-03-04 18:47] LABS: ESTIMATED GFR 100 mL/min (>60)
[2022-03-04 19:05] LABS: CORONAVIRUS COVID-19 NAA NEGATIVE (NEGATIVE); INFLUENZA A NAA NEGATIVE (NEGATIVE); INFLUENZA B NAA NEGATIVE (NEGATIVE); RESPIRATORY SYNCYTIAL VIR NAA NEGATIVE (NEGATIVE)
[2022-03-04 19:32] VITALS: BP 116/74; PULSE 90
== END 2022-03-04 19:32 | disposition home or self-care (01) ==
LOC: MW.ED 17:27
DX: R07.9 Chest pain, unspecified (principal); J45.909 Unspecified asthma, uncomplicated; I48.91 Unspecified atrial fibrillation; Z79.899 Other long term (current) drug therapy; Z20.822 Contact with and (suspected) exposure to COVID-19
CPT/HCPCS: 0241U; 36415; 71045; 80053; 81001; 83735; 84484; 85025; 85610; 99285

== ENCOUNTER 2022-05-31 10:16 | Emergency (ER) | payer BC ==
[2022-05-31] MEDS ORDERED: Sodium Chloride 0.9% 1,000 ML IV STA (11:10)
[2022-05-31] MEDS ORDERED: Promethazine 25 MG/ML SDV IM STA (11:11)
[2022-05-31] MEDS ORDERED: LORazepam 0.5 MG Tab PO STA (11:16)
[2022-05-31 12:09] LABS: POTASSIUM,K 3.1 mmol/L (3.5-5.1)
[2022-05-31] MEDS ORDERED: Potassium Chloride 20 MEQ Tab.ER PO STA (12:26)
[2022-05-31 13:41] VITALS: BP 122/68; PULSE 67
== END 2022-05-31 13:40 | disposition home or self-care (01) ==
LOC: MW.ED 10:16
DX: R07.89 Other chest pain (principal); F41.0 Panic disorder [episodic paroxysmal anxiety]; F43.9 Reaction to severe stress, unspecified; N30.00 Acute cystitis without hematuria; R11.2 Nausea with vomiting, unspecified; I48.91 Unspecified atrial fibrillation
CPT/HCPCS: 36415; 71045; 80053; 81001; 83735; 84484; 85025; 87086; 93005; 96360; 96372; 99284; A9270; J2550; J7030; 93010; 99283

== ENCOUNTER 2022-06-02 12:34 | Emergency (ER) | payer BC ==
[2022-06-02] MEDS ORDERED: Ondansetron 4 MG/2 ML SDV IVPUSH STA (13:33)
[2022-06-02] MEDS ORDERED: Sodium Chloride 0.9% 1,000 ML IV STA ×2 (13:33→16:01)
[2022-06-02] MEDS ORDERED: Prochlorperazine 10 MG/2 ML SDV IVPUSH STA (14:27)
[2022-06-02 14:40] LABS: CARBON DIOXIDE,CO2 23.1 mmol/L (21.0-32.0); POTASSIUM,K 3.4 mmol/L (3.5-5.1)
[2022-06-02] MEDS ORDERED: Iopamidol 755 Mg/ML 100 ML Bottle IVPUSH ONE (14:58)
[2022-06-02] MEDS ORDERED: Potassium Chloride 20 MEQ Tab.ER PO ONE (15:52)
[2022-06-02 17:01] VITALS: BP 122/81; PULSE 85
== END 2022-06-02 16:58 | disposition home or self-care (01) ==
LOC: MW.ED 12:34
DX: R07.89 Other chest pain (principal); R11.2 Nausea with vomiting, unspecified
CPT/HCPCS: 36415; 71275; 74177; 80053; 81025; 83690; 83735; 84443; 84484; 85025; 85379; 93005; 96361; 96374; 96375; 99284; A9270; J0780; J2405; J7030; Q9967

== ENCOUNTER 2022-06-22 23:20 | Emergency (ER) | payer BC ==
[2022-06-23 00:55] LABS: CARBON DIOXIDE,CO2 27.7 mmol/L (21.0-32.0); POTASSIUM,K 3.4 mmol/L (3.5-5.1)
[2022-06-23 01:19] LABS: CORONAVIRUS COVID-19 NAA NEGATIVE (NEGATIVE); INFLUENZA A NAA NEGATIVE (NEGATIVE); INFLUENZA B NAA NEGATIVE (NEGATIVE); RESPIRATORY SYNCYTIAL VIR NAA NEGATIVE (NEGATIVE)
[2022-06-23] MEDS ORDERED: Alum Hydro/Mag Hydro/Simeth XS 15 ML, Lidocaine 2% 5 ML PO ONE ×2 (01:29)
[2022-06-23 02:56] VITALS: BP 106/66; PULSE 84
== END 2022-06-23 02:54 | disposition home or self-care (01) ==
LOC: MW.ED 23:20
DX: R07.89 Other chest pain (principal); Z79.01 Long term (current) use of anticoagulants; Z20.822 Contact with and (suspected) exposure to COVID-19
CPT/HCPCS: 0241U; 36415; 71045; 80053; 83690; 84443; 84484; 84703; 85025; 85379; 93005; 99285; A9270; 93010; 99283

== ENCOUNTER 2022-10-24 15:46 | Emergency (ER) | payer BC ==
[2022-10-24] MEDS ORDERED: Sodium Chloride 0.9% 1,000 ML IV ONE (16:04)
[2022-10-24 16:30] LABS: BASOPHILS PERCENT AUTO 0.3 % (0.0-1.5); EOSINOPHILS PERCENT AUTO 0.8 % (0.0-7.0); HEMATOCRIT 38.8 % (36.0-46.0); LYMPHOCYTES ABSOLUTE AUTO 1.6 K/uL (0.6-2.4); LYMPHOCYTES PERCENT AUTO 39.8 % (16.0-40.0); MEAN CORPUSCULAR HEMOGLOBIN 29.3 pg (27.0-32.0); MEAN CORPUSCULAR HGB CONC 33.5 g/dL (31.0-37.0); MEAN CORPUSCULAR VOLUME 87.6 fL (80.0-98.0); MONOCYTES ABSOLUTE AUTO 0.3 K/uL (0.0-0.8); MONOCYTES PERCENT AUTO 8.1 % (0.0-15.0); NRBC ABSOLUTE 0 K/uL; PLATELET COUNT,PLT 214 K/uL (150-400); RED BLOOD CELL COUNT 4.43 M/uL (4.30-5.90); WHITE BLOOD CELL COUNT,WBC 3.94 K/uL (4.0-11.0)
[2022-10-24 16:50] LABS: A/G RATIO 1.1 (0.9-1.6); ALBUMIN 4.1 g/dL (3.4-5.0); BILIRUBIN TOTAL 0.5 mg/dL (0.2-1.0); CARBON DIOXIDE,CO2 24.6 mmol/L (21.0-32.0); CREATININE 0.8 mg/dL (0.6-1.0); EST CRCL DRUG DOSING (CG) 90.84 mL/min; PROTEIN TOTAL,TP 7.9 g/dL (6.4-8.2)
[2022-10-24 17:32] VITALS: BP 125/85; PULSE 92
== END 2022-10-24 17:31 | disposition home or self-care (01) ==
LOC: MW.ED 15:46
DX: G43.909 Migraine, unspecified, not intractable, without status migrainosus (principal); J45.909 Unspecified asthma, uncomplicated; Z79.899 Other long term (current) drug therapy
CPT/HCPCS: 36415; 70450; 80053; 85025; 96360; 99284; J7030; 99283

== ENCOUNTER 2023-03-04 19:35 | Emergency (ER) | payer BC ==
[2023-03-04] MEDS ORDERED: Ketorolac 30 MG/ML SDV IVPUSH ONE (19:37)
[2023-03-04] MEDS ORDERED: Sodium Chloride 0.9% 1,000 ML IV ONE (19:37)
[2023-03-04 19:51] LABS: BASOPHILS ABSOLUTE AUTO 0.02 K/uL (0.00-0.20); BASOPHILS PERCENT AUTO 0.3 % (0.0-1.0); EOSINOPHILS ABSOLUTE AUTO 0.03 K/uL (0.00-0.45); EOSINOPHILS PERCENT AUTO 0.5 % (0.0-6.0); HEMATOCRIT 38.1 % (37.0-47.0); HEMOGLOBIN 13.5 g/dL (12.0-16.0); LYMPHOCYTES ABSOLUTE AUTO 2.11 K/uL (1.00-4.80); LYMPHOCYTES PERCENT AUTO 36.2 % (24.0-44.0); MEAN CORPUSCULAR HEMOGLOBIN 31.3 pg (28.0-32.0); MEAN CORPUSCULAR HGB CONC 35.4 g/dL (32.0-36.0); MEAN CORPUSCULAR VOLUME 88.4 fL (83.0-99.0); MEAN PLATELET VOLUME 9.7 fL (9.4-12.3); MONOCYTES ABSOLUTE AUTO 0.47 K/uL (0.00-0.80); MONOCYTES PERCENT AUTO 8.1 % (0.0-8.0); NEUTROPHILS PERCENT AUTO 54.9 % (41.0-71.0); PLATELET COUNT,PLT 224 K/uL (150-400); RED BLOOD CELL COUNT 4.31 M/uL (4.10-5.30); WHITE BLOOD CELL COUNT,WBC 5.83 K/uL (3.9-11.3)
[2023-03-04 20:05] LABS: INR 1.15 (0.86-1.11)
[2023-03-04 20:48] LABS: APPEARANCE,URINE CLEAR; BILIRUBIN,URINE NEGATIVE (NEGATIVE); COLOR,URINE YELLOW; GLUCOSE,URINE NEGATIVE (NEGATIVE); KETONES,URINE NEGATIVE (NEGATIVE); LEUKOCYTE ESTERASE,URINE NEGATIVE (NEGATIVE); NITRITE,URINE NEGATIVE (NEGATIVE); OCCULT BLOOD,URINE TRACE-INTACT (NEGATIVE); PROTEIN,URINE NEGATIVE (NEGATIVE)
[2023-03-04 20:50] LABS: A/G RATIO 1.1 (0.9-1.6); ALANINE AMINOTRANSFERASE,ALT 18 IU/L (14-63); ALBUMIN 4.2 g/dL (3.4-5.0); ALKALINE PHOSPHATASE 66 U/L (46-116); ASPARTATE AMNIOTRANSFERASE,AST 11 IU/L (15-37); BILIRUBIN TOTAL 0.6 mg/dL (0.2-1.0); BLOOD UREA NITROGEN,BUN 9 mg/dL (7.0-18.0); CALCIUM 9.1 mg/dL (8.5-10.1); CARBON DIOXIDE,CO2 27.2 mmol/L (21.0-32.0); CHLORIDE,CL 102 mmol/L (98-107); CREATININE 0.8 mg/dL (0.6-1.0); GLUCOSE RANDOM 85 mg/dL (74-106); POTASSIUM,K 3.5 mmol/L (3.5-5.1); PROTEIN TOTAL,TP 7.9 g/dL (6.4-8.2); SODIUM,NA 136 mmol/L (136-145)
[2023-03-04 20:51] LABS: ESTIMATED GFR 100 mL/min (>60)
[2023-03-04 21:12] LABS: CORONAVIRUS COVID-19 NAA NEGATIVE (NEGATIVE); INFLUENZA A NAA NEGATIVE (NEGATIVE); INFLUENZA B NAA NEGATIVE (NEGATIVE)
[2023-03-04 21:45] VITALS: BP 114/79; PULSE 97
[2023-03-04 22:03] LABS: BACTERIA,URINE FEW (NEGATIVE); EPITHELIAL CELLS,URINE FEW (NONE-FEW); RBC,URINE 0-1 (0-2/HPF); WBC,URINE 0-2 (0-5/HPF)
== END 2023-03-04 21:49 | disposition home or self-care (01) ==
LOC: MW.ED 19:35
DX: R07.9 Chest pain, unspecified (principal); I48.91 Unspecified atrial fibrillation; Z20.822 Contact with and (suspected) exposure to COVID-19
CPT/HCPCS: 0240U; 36415; 71045; 80053; 81001; 81025; 84484; 85025; 85379; 85610; 85730; 93005; 96361; 96374; 99285; J1885; J7030; 93010; 99284

== ENCOUNTER 2023-08-11 11:13 | Emergency (ER) | payer BC ==
[2023-08-11 11:43] LABS: BASOPHILS ABSOLUTE AUTO 0.03 K/uL (0.00-0.20); BASOPHILS PERCENT AUTO 0.7 % (0.0-1.0); EOSINOPHILS ABSOLUTE AUTO 0.03 K/uL (0.00-0.45); EOSINOPHILS PERCENT AUTO 0.7 % (0.0-6.0); HEMATOCRIT 39.3 % (37.0-47.0); HEMOGLOBIN 13.7 g/dL (12.0-16.0); LYMPHOCYTES ABSOLUTE AUTO 1.53 K/uL (1.00-4.80); LYMPHOCYTES PERCENT AUTO 35.7 % (24.0-44.0); MEAN CORPUSCULAR HEMOGLOBIN 31.4 pg (28.0-32.0); MEAN CORPUSCULAR HGB CONC 34.9 g/dL (32.0-36.0); MEAN CORPUSCULAR VOLUME 90.1 fL (83.0-99.0); MEAN PLATELET VOLUME 9.6 fL (9.4-12.3); MONOCYTES ABSOLUTE AUTO 0.35 K/uL (0.00-0.80); MONOCYTES PERCENT AUTO 8.2 % (0.0-8.0); NEUTROPHILS ABSOLUTE AUTO 2.34 K/uL (1.80-7.70); NEUTROPHILS PERCENT AUTO 54.7 % (41.0-71.0); PLATELET COUNT,PLT 202 K/uL (150-400); RED BLOOD CELL COUNT 4.36 M/uL (4.10-5.30); WHITE BLOOD CELL COUNT,WBC 4.28 K/uL (3.9-11.3)
[2023-08-11 11:53] LABS: INR 1.14 (0.86-1.11); PTT,PARTIAL THROMBOPLSTIN TIME 30.5 SEC (23.9-30.7)
[2023-08-11 12:06] LABS: A/G RATIO 1.1 (0.9-1.6); ALANINE AMINOTRANSFERASE,ALT 18 IU/L (14-63); ALBUMIN 4.1 g/dL (3.4-5.0); ALKALINE PHOSPHATASE 61 U/L (46-116); ASPARTATE AMNIOTRANSFERASE,AST 15 IU/L (15-37); BILIRUBIN TOTAL 0.8 mg/dL (0.2-1.0); BLOOD UREA NITROGEN,BUN 12 mg/dL (7.0-18.0); CALCIUM 8.8 mg/dL (8.5-10.1); CHLORIDE,CL 103 mmol/L (98-107); CREATININE 0.9 mg/dL (0.6-1.0); GLUCOSE RANDOM 86 mg/dL (74-106); LIPASE 46 U/L (16-77); MAGNESIUM 1.6 mg/dL (1.8-2.4); POTASSIUM,K 3.6 mmol/L (3.5-5.1); PROTEIN TOTAL,TP 7.7 g/dL (6.4-8.2); SODIUM,NA 137 mmol/L (136-145)
[2023-08-11 12:07] LABS: ESTIMATED GFR 87 mL/min (>60)
[2023-08-11] MEDS: Iopamidol 755 MG/ML 500 ML Multipack Bottle IVPUSH STA (12:27)
[2023-08-11 14:28] VITALS: BP 117/82; PULSE 98
== END 2023-08-11 14:27 | disposition home or self-care (01) ==
LOC: MW.ED 11:13
DX: R00.2 Palpitations (principal); E83.42 Hypomagnesemia; Z86.16 Personal history of COVID-19; Z79.899 Other long term (current) drug therapy; Z75.8 Other problems related to medical facilities and other health care
CPT/HCPCS: 36415; 71275; 80053; 83690; 83735; 84443; 84484; 84703; 85025; 85379; 85610; 85730; 93005; 93246; 99285; Q9967; 93010; 99284

== ENCOUNTER 2023-12-30 07:53 | Day surgery (SDC) | payer BC ==
[~2023-12-30 07:53] MED LIST changes: +Albuterol 0.083% 2.5 MG/3 ML Neb Soln NEB PRN; +HYDROmorphone 1 MG/ML Syringe IVPUSH PRN; -Lactated Ringers 1,000 ML IV SCH; +Metoclopramide 10 MG/2 ML SDV IVPUSH PRN; +Morphine 2 MG/ML SYRINGE IVPUSH PRN; +Naloxone 0.4 MG/ML SDV IVPUSH PRN; +Ondansetron 4 MG/2 ML SDV IVPUSH PRN; +droPERidol 5 MG/2 ML SDV IVPUSH PRN; +fentaNYL 50 MCG/ML SDV IVPUSH PRN
[2023-12-30 08:16] LABS: HEMATOCRIT 39.7 % (37.0-47.0); HEMOGLOBIN 13.8 g/dL (12.0-16.0); MEAN CORPUSCULAR HEMOGLOBIN 31.9 pg (28.0-32.0); MEAN CORPUSCULAR HGB CONC 34.8 g/dL (32.0-36.0); MEAN CORPUSCULAR VOLUME 91.9 fL (83.0-99.0); MEAN PLATELET VOLUME 9.5 fL (9.4-12.3); PLATELET COUNT,PLT 215 K/uL (150-400); RED BLOOD CELL COUNT 4.32 M/uL (4.10-5.30); WHITE BLOOD CELL COUNT,WBC 4.31 K/uL (3.9-11.3)
[2023-12-30] MEDS: Lactated Ringers 1,000 ML IV SCH (08:16)
[2023-12-30] MEDS ORDERED: propofoL 50 ML ONE (08:19)
[2023-12-30] MEDS ORDERED: Water For Injection, Sterile 20 ML ONE (08:19)
[2023-12-30] MEDS ORDERED: dexmedeTOMIDine HCl 200 MCG/2 ML SDV ONE (08:19)
[2023-12-30] MEDS ORDERED: fentaNYL 100 MCG/2 ML SDV ONE (08:22)
[2023-12-30] MEDS ORDERED: Lidocaine 1% with EPINEPHrine 1:100,000 10 ML MDV ONE (08:57)
[2023-12-30] MEDS ORDERED: Ferric Subsulfate Topical Soln 8 GM (8 ML) Bottle ONE (08:57)
[2023-12-30] MEDS ORDERED: Iodine/Potassium Iodide 5% Solution 14 ML Bottle ONE (08:58)
[2023-12-30] MEDS ORDERED: Acetic Acid 3% Solution 500 ML Bottle ONE (08:58)
[2023-12-30] MEDS ORDERED: Ondansetron 4 MG/2 ML SDV ONE (09:45)
[2023-12-30] MEDS ORDERED: Ketorolac 30 MG/ML SDV ONE (09:45)
[2023-12-30] MEDS ORDERED: Methylergonovine 0.2 MG/1 ML Amp ONE (10:36)
[2023-12-30 11:30] VITALS: BP 98/64; PULSE 62
== END 2023-12-30 11:03 | disposition home or self-care (01) ==
LOC: MW.SDS 07:53
PROVIDERS: ATTEND Obstetrics & Gynecology
DX: R87.612 Low grade squamous intraepithelial lesion on cytologic smear of cervix (LGSIL) (principal); N87.1 Moderate cervical dysplasia; I48.91 Unspecified atrial fibrillation; J45.909 Unspecified asthma, uncomplicated; F41.8 Other specified anxiety disorders; Z79.899 Other long term (current) drug therapy
CPT/HCPCS: 36415; 57522; 84703; 85027; A9270; J1885; J2405; J2704; J3010; J7120; 00940; J2210; J3490

== ENCOUNTER 2024-08-11 09:00 | Day surgery (SDC) | payer BC ==
[~2024-08-11 09:00] MED LIST changes: -Albuterol 0.083% 2.5 MG/3 ML Neb Soln NEB PRN; -HYDROmorphone 1 MG/ML Syringe IVPUSH PRN; -Metoclopramide 10 MG/2 ML SDV IVPUSH PRN; -Morphine 2 MG/ML SYRINGE IVPUSH PRN; -Naloxone 0.4 MG/ML SDV IVPUSH PRN; -Ondansetron 4 MG/2 ML SDV IVPUSH PRN; +Sodium Chloride 0.9% 10 ML Syringe FLUSH PRN; +Sodium Chloride 0.9% 2.5 ML Syringe FLUSH PRN; +Sodium Chloride 0.9% 20 ML SDV IV PRN; -droPERidol 5 MG/2 ML SDV IVPUSH PRN; -fentaNYL 50 MCG/ML SDV IVPUSH PRN
[2024-08-11] MEDS ORDERED: propofoL 500 MG/50 ML 50 ML ONE (09:16)
[2024-08-11] MEDS ORDERED: Lidocaine 2% 5 ML SDV ONE (09:16)
[2024-08-11] MEDS: Lactated Ringers 1,000 ML IV SCH (09:29)
[2024-08-11] MEDS ORDERED: dexmedeTOMIDine HCl 200 MCG/2 ML SDV ONE (10:01)
[2024-08-11 12:07] VITALS: BP 103/68; PULSE 73
== END 2024-08-11 11:08 | disposition home or self-care (01) ==
LOC: MW.SDS 09:00
PROVIDERS: ATTEND Surgery
DX: Z12.11 Encounter for screening for malignant neoplasm of colon (principal); R19.5 Other fecal abnormalities; K21.9 Gastro-esophageal reflux disease without esophagitis; K31.89 Other diseases of stomach and duodenum; K22.89 Other specified disease of esophagus; J45.909 Unspecified asthma, uncomplicated; F32.A Depression, unspecified; Z87.891 Personal history of nicotine dependence; Z79.899 Other long term (current) drug therapy
CPT/HCPCS: 43239; 45380; 81025; J2003; J2704; J7120; 00813

== ENCOUNTER 2024-08-12 13:45 | Emergency (ER) | payer BC ==
[2024-08-12] MEDS ORDERED: Sodium Chloride 0.9% 10 ML Syringe FLUSH PRN (14:20)
[2024-08-12 14:26] LABS: BASOPHILS ABSOLUTE AUTO 0.01 K/uL (0.00-0.20); BASOPHILS PERCENT AUTO 0.2 % (0.0-1.0); EOSINOPHILS ABSOLUTE AUTO 0.05 K/uL (0.00-0.45); EOSINOPHILS PERCENT AUTO 1.1 % (0.0-6.0); HEMATOCRIT 38.7 % (37.0-47.0); HEMOGLOBIN 13.3 g/dL (12.0-16.0); IMMATURE GRAN ABSOLUTE AUTO 0.01 K/uL (0.00-0.05); IMMATURE GRAN PERCENT AUTO 0.2 % (0.0-0.4); LYMPHOCYTES ABSOLUTE AUTO 1.57 K/uL (1.00-4.80); MEAN CORPUSCULAR HEMOGLOBIN 31.3 pg (28.0-32.0); MEAN CORPUSCULAR HGB CONC 34.4 g/dL (32.0-36.0); MEAN CORPUSCULAR VOLUME 91.1 fL (83.0-99.0); MEAN PLATELET VOLUME 10.2 fL (9.4-12.3); MONOCYTES ABSOLUTE AUTO 0.42 K/uL (0.00-0.80); MONOCYTES PERCENT AUTO 8.8 % (0.0-8.0); NEUTROPHILS PERCENT AUTO 56.7 % (41.0-71.0); PLATELET COUNT,PLT 216 K/uL (150-400); RED BLOOD CELL COUNT 4.25 M/uL (4.10-5.30); WHITE BLOOD CELL COUNT,WBC 4.76 K/uL (3.9-11.3)
[2024-08-12 14:29] LABS: APPEARANCE,URINE CLEAR; BILIRUBIN,URINE NEGATIVE (NEGATIVE); COLOR,URINE YELLOW; GLUCOSE,URINE NEGATIVE (NEGATIVE); KETONES,URINE NEGATIVE (NEGATIVE); LEUKOCYTE ESTERASE,URINE NEGATIVE (NEGATIVE); NITRITE,URINE NEGATIVE (NEGATIVE); OCCULT BLOOD,URINE NEGATIVE (NEGATIVE); PROTEIN,URINE NEGATIVE (NEGATIVE); UROBILINOGEN,URINE 0.2 EU/dL (<2.0)
[2024-08-12 14:42] LABS: A/G RATIO 1.3 (0.9-1.6); ALBUMIN 4.3 g/dL (3.4-5.0); BILIRUBIN TOTAL 0.5 mg/dL (0.2-1.0); CALCIUM 8.7 mg/dL (8.5-10.1); CARBON DIOXIDE,CO2 27.3 mmol/L (21.0-32.0); CREATININE 0.8 mg/dL (0.6-1.0); EST CRCL DRUG DOSING (CG) 89.16 mL/min; MAGNESIUM 1.9 mg/dL (1.8-2.4); POTASSIUM,K 3.7 mmol/L (3.5-5.1); PROTEIN TOTAL,TP 7.6 g/dL (6.4-8.2)
[2024-08-12] MEDS: Iopamidol 755 MG/ML 500 ML Multipack Bottle IVPUSH STA (14:50)
[2024-08-12 16:17] VITALS: BP 109/81; PULSE 66
== END 2024-08-12 16:17 | disposition home or self-care (01) ==
LOC: MW.ED 13:45
DX: N83.201 Unspecified ovarian cyst, right side (principal); I48.91 Unspecified atrial fibrillation; Z79.899 Other long term (current) drug therapy
CPT/HCPCS: 36415; 74177; 80053; 81003; 81025; 83735; 85025; 99284; Q9967; 99283

== ENCOUNTER 2024-09-21 06:38 | Day surgery (SDC) | payer BC ==
[~2024-09-21 06:38] MED LIST changes: +ceFAZolin 2 GM in Water For Injection, Sterile 20 ML IVPUSH ONE
[2024-09-21] MEDS: Lactated Ringers 1,000 ML IV SCH (07:05)
[2024-09-21] MEDS ORDERED: Bupivacaine 0.5% 30 ML SDV ONE (07:19)
[2024-09-21] MEDS ORDERED: propofoL 1,000 MG/100 ML 100 ML ONE (07:29)
[2024-09-21] MEDS ORDERED: Ropivacaine 0.5% 5 MG/ML 30 ML SDV ONE (07:37)
[2024-09-21] MEDS ORDERED: Morphine 2 MG/ML SYRINGE IVPUSH PRN (07:38)
[2024-09-21] MEDS ORDERED: Naloxone 0.4 MG/ML SDV IVPUSH PRN (07:38)
[2024-09-21] MEDS ORDERED: dexmedeTOMIDine HCl 200 MCG/2 ML SDV ONE ×2 (07:38→08:54)
[2024-09-21] MEDS ORDERED: HYDROmorphone 1 MG/ML Syringe IVPUSH PRN (07:38)
[2024-09-21] MEDS ORDERED: Phenylephrine HCl In 0.9% NaCl 1 MG/10 ML Syringe IVPUSH PRN (07:38)
[2024-09-21] MEDS ORDERED: Ondansetron 4 MG/2 ML SDV IVPUSH PRN (07:38)
[2024-09-21] MEDS ORDERED: Albuterol 0.083% 2.5 MG/3 ML Neb Soln NEB PRN (07:38)
[2024-09-21] MEDS ORDERED: Metoclopramide 10 MG/2 ML SDV IVPUSH PRN (07:38)
[2024-09-21] MEDS ORDERED: fentaNYL 50 MCG/ML SDV IVPUSH PRN (07:38)
[2024-09-21] MEDS ORDERED: Sodium Chloride 0.9% 20 ML ONE (07:39)
[2024-09-21] MEDS ORDERED: Rocuronium Bromide 50 MG/5 ML Syringe ONE (07:42)
[2024-09-21] MEDS ORDERED: HYDROmorphone 1 MG/ML Syringe ONE (07:44)
[2024-09-21] MEDS ORDERED: Ondansetron 4 MG/2 ML SDV ONE (08:18)
[2024-09-21] MEDS ORDERED: Dexamethasone 4 MG/ML 5 ML MDV ONE (08:18)
[2024-09-21] MEDS ORDERED: ceFAZolin 2 GM Vial ONE (08:20)
[2024-09-21] MEDS ORDERED: Ketorolac 30 MG/ML SDV ONE (08:54)
[2024-09-21] MEDS ORDERED: Sugammadex Sodium 200 MG/2 ML VIAL IV ONE (09:17)
[2024-09-21 13:21] VITALS: BP 132/87; PULSE 65
== END 2024-09-21 11:55 | disposition home or self-care (01) ==
LOC: MW.SDS 06:38
PROVIDERS: ATTEND Surgery
DX: K80.10 Calculus of gallbladder with chronic cholecystitis without obstruction (principal); K82.8 Other specified diseases of gallbladder; I48.91 Unspecified atrial fibrillation; Z79.899 Other long term (current) drug therapy
CPT/HCPCS: 47562; 64488; 81025; J0665; J0690; J1100; J1171; J1885; J2405; J2704; J2795; J7120; 00790; J3490

== ENCOUNTER 2024-12-30 19:58 | Emergency (ER) | payer BC ==
[2024-12-30 20:37] LABS: BASOPHILS ABSOLUTE AUTO 0.04 K/uL (0.00-0.20); BASOPHILS PERCENT AUTO 0.7 % (0.0-1.0); EOSINOPHILS ABSOLUTE AUTO 0.10 K/uL (0.00-0.45); EOSINOPHILS PERCENT AUTO 1.7 % (0.0-6.0); IMMATURE GRAN ABSOLUTE AUTO 0.01 K/uL (0.00-0.05); IMMATURE GRAN PERCENT AUTO 0.2 % (0.0-0.4); LYMPHOCYTES ABSOLUTE AUTO 1.98 K/uL (1.00-4.80); LYMPHOCYTES PERCENT AUTO 33.7 % (24.0-44.0); MEAN PLATELET VOLUME 9.3 fL (9.4-12.3); MONOCYTES ABSOLUTE AUTO 0.53 K/uL (0.00-0.80); MONOCYTES PERCENT AUTO 9.0 % (0.0-8.0); NEUTROPHILS ABSOLUTE AUTO 3.22 K/uL (1.80-7.70); NEUTROPHILS PERCENT AUTO 54.7 % (41.0-71.0); NRBC ABSOLUTE 0.00 K/uL (0.00-0.02); NRBC PERCENT 0.0 /100WBC (0.0-0.2); PLATELET COUNT,PLT 226 K/uL (150-400); RED BLOOD CELL COUNT 4.23 M/uL (4.10-5.30); WHITE BLOOD CELL COUNT,WBC 5.88 K/uL (3.9-11.3)
[2024-12-30 21:21] LABS: A/G RATIO 1.2 (0.9-1.6); ALANINE AMINOTRANSFERASE,ALT 26 IU/L (14-63); ASPARTATE AMNIOTRANSFERASE,AST 15 IU/L (15-37); BILIRUBIN TOTAL 0.5 mg/dL (0.2-1.0); BLOOD UREA NITROGEN,BUN 9 mg/dL (7.0-18.0); CARBON DIOXIDE,CO2 26.3 mmol/L (21.0-32.0); CHLORIDE,CL 104 mmol/L (98-107); CREATININE 0.7 mg/dL (0.6-1.0); GLUCOSE RANDOM 81 mg/dL (74-106); POTASSIUM,K 3.8 mmol/L (3.5-5.1); PROTEIN TOTAL,TP 7.4 g/dL (6.4-8.2); SODIUM,NA 140 mmol/L (136-145)
[2024-12-30 21:23] LABS: ESTIMATED GFR 116 mL/min (>60); HCG QUANTITATIVE 7577.0 mIU/mL
[2024-12-30 21:31] LABS: GLUCOSE,URINE NEGATIVE (NEGATIVE); OCCULT BLOOD,URINE LARGE (NEGATIVE)
[2024-12-30 21:38] LABS: APPEARANCE,URINE HAZY
[2024-12-30 21:39] LABS: EPITHELIAL CELLS,URINE FEW (NONE-FEW)
[2024-12-30 23:34] VITALS: BP 115/84; PULSE 84
== END 2024-12-30 23:34 | disposition home or self-care (01) ==
LOC: MW.ED 19:58
DX: O20.0 Threatened abortion (principal); Z3A.00 Weeks of gestation of pregnancy not specified
CPT/HCPCS: 36415; 76817; 80053; 81001; 84702; 85025; 86850; 86900; 86901; 96372; 99284; J2791; 99283